=== PATIENT | male | born 1960 ===

== ENCOUNTER 2020-03-06 11:46 | Outpatient (REF) | payer OTHER, SELFPAY ==
[2020-03-06 12:18] LABS: MANUAL DIFF FLAG NO
[2020-03-06 12:22] LABS: Basophils Percent Auto 0.8 % (0-2); Eosinophils Absolute Auto 0.1 X10*3/uL (0.0-0.4); Eosinophils Percent Auto 2.9 % (0-4); Hematocrit 39.6 % (42-52); Hemoglobin 12.6 g/dl (14.0-18.0); Lymphocytes Absolute Auto 1.7 X10*3/uL (1.2-4.9); Lymphocytes Percent Auto 46.1 % (20-40); Mean Corpuscular HGB Conc 31.8 g/dl (31.0-36.0); Mean Corpuscular Hemoglobin 28.8 pg (27.0-33.0); Mean Corpuscular Volume 90.6 fL (80-98); Mean Platelet Volume 9.4 fL (9.4-12.4); Monocytes Absolute Auto 0.4 X10*3/uL (0.1-1.2); Monocytes Percent Auto 10.9 % (2-11); Neutrophils Absolute Auto 1.5 X10*3/uL (2.0-8.3); Neutrophils Percent Auto 39.3 % (45-73); Platelet Count 200 X10*3/uL (160-400); Red Blood Count 4.37 X10*6/uL (4.60-5.80); Red Cell Distribution Width 14.1 % (11.0-16.0); White Blood Count 3.8 X10*3/uL (4.8-10.8)
[2020-03-06 12:57] LABS: Alanine Aminotransferase 30 U/L (0-40); Albumin Level 4.1 g/dL (3.5-5.0); Alkaline Phosphatase 55 U/L (39-117); Anion Gap 12 (12-20); Aspartate Amino Transferase 25 U/L (5-37); Blood Urea Nitrogen 20 mg/dL (9-16); Calcium 9.2 mg/dL (8.4-10.2); Carbon Dioxide 29 mmol/L (22-29); Chloride 104 mmol/L (96-108); Cholesterol 191 mg/dL; Estimated Glomerular Filt Rate > 60; Glucose Fasting 89 mg/dL (60-99); HDL Cholesterol 55 mg/dL; LDL Cholesterol Calculated 125 mg/dl; Potassium 4.2 mmol/l (3.3-5.1); Sodium 141 mmol/L (135-145); Total Protein 6.8 g/dL (6.5-8.0); Triglycerides 55 mg/dL
== END 2020-03-06 11:47 | disposition home or self-care (01) ==
LOC: HO.LAB 11:46
PROVIDERS: PCP Internal Medicine Medical Oncology; Visit Provider Internal Medicine Medical Oncology
DX: E78.2 Mixed hyperlipidemia (principal); I10 Essential (primary) hypertension; E66.3 Overweight
CPT/HCPCS: 36415; 80053; 80061; 85025

== ENCOUNTER 2020-07-05 09:44 | Outpatient (REF) | payer OTHER, SELFPAY ==
[2020-07-05 10:24] LABS: MANUAL DIFF FLAG NO
[2020-07-05 10:29] LABS: Basophils Percent Auto 0.8 % (0-2); Eosinophils Absolute Auto 0.1 X10*3/uL (0.0-0.4); Eosinophils Percent Auto 3.6 % (0-4); Hematocrit 41.3 % (42-52); Hemoglobin 13.3 g/dl (14.0-18.0); Lymphocytes Absolute Auto 1.6 X10*3/uL (1.2-4.9); Mean Corpuscular HGB Conc 32.2 g/dl (31.0-36.0); Mean Corpuscular Hemoglobin 29.1 pg (27.0-33.0); Mean Corpuscular Volume 90.4 fL (80-98); Mean Platelet Volume 9.3 fL (9.4-12.4); Monocytes Absolute Auto 0.4 X10*3/uL (0.1-1.2); Monocytes Percent Auto 9.9 % (2-11); Neutrophils Absolute Auto 1.5 X10*3/uL (2.0-8.3); Neutrophils Percent Auto 40.7 % (45-73); Platelet Count 223 X10*3/uL (160-400); Red Blood Count 4.57 X10*6/uL (4.60-5.80); Red Cell Distribution Width 14.1 % (11.0-16.0); White Blood Count 3.6 X10*3/uL (4.8-10.8)
[2020-07-05 10:58] LABS: Alanine Aminotransferase 29 U/L (0-40); Alkaline Phosphatase 58 U/L (39-117); Anion Gap 9 (12-20); Aspartate Amino Transferase 24 U/L (5-37); Bilirubin Total 1.1 mg/dL (0.0-1.0); Blood Urea Nitrogen 15 mg/dL (9-16); Calcium 9.1 mg/dL (8.4-10.2); Carbon Dioxide 32 mmol/L (22-29); Chloride 102 mmol/L (96-108); Cholesterol 207 mg/dL; Estimated Glomerular Filt Rate > 60; Glucose Fasting 81 mg/dL (60-99); HDL Cholesterol 56 mg/dL; LDL Cholesterol Calculated 142 mg/dl; Potassium 4.9 mmol/L (3.3-5.1); Sodium 138 mmol/L (135-145); Total Protein 6.8 g/dL (6.5-8.0); Triglycerides 49 mg/dL
[2020-07-05 11:16] LABS: Prostate Specific Antigen 0.77 ng/mL (<0.05-4.0)
== END 2020-07-05 09:45 | disposition home or self-care (01) ==
LOC: HO.LAB 09:44
PROVIDERS: PCP Internal Medicine Medical Oncology; Visit Provider Internal Medicine Medical Oncology
DX: I10 Essential (primary) hypertension (principal); E78.2 Mixed hyperlipidemia; Z12.5 Encounter for screening for malignant neoplasm of prostate
CPT/HCPCS: 36415; 80053; 80061; 84153; 85025

== ENCOUNTER 2020-09-09 10:42 | Day surgery (SDC) | payer OTHER, SELFPAY ==
[2020-09-04 14:57] VITALS: BMI 32.6
[2020-09-09 11:01] VITALS: BP 141/83; PULSE 65; RESP 16; TEMP 36.5; O2SAT 98
--- NOTE | 2020-09-09 11:22 | HO.ANESPROP2 ---
HPI - Anesthesia Eval Consult details Narrative: 60 yo male patient here for colonoscopy PMFSH Past Medical History Medical History Elevated cholesterol HTN (hypertension) Family History Family history of problems with anesthesia: No Surgical History Surgical History H/O colonoscopy History of Problems with Anesthesia: No Social History Social History Smoking Status: Never smoker Use of substances other than those prescribed or required for medical reasons: No Advance Directives Information Provided: No Meds Allergies Allergy/AdvReac Type Severity Reaction Status Date / Time Fish Containing Products Allergy Severe ANAPHYLAXIS Verified 09/09/20 10:57 Penicillins [PENICILLINS] Allergy Severe ANAPHYLAXIS Verified 09/09/20 10:57 Active Medications: Current Medications Generic Name Dose Route Start Last Admin Trade Name Freq PRN Reason Stop Dose Admin Lactated Ringer's 1,000 mls @ 100 mls/hr 09/09/20 11:30 Lr IVCONT .Q10H LISSETT Sodium Biphosphate/Sodium Phosphate 133 ml 09/09/20 10:48 Sodium Phosphate,Collier-Dibasic 133 Ml Enema [place] ONCE PRN Poor Colonoscopy Prep Results Home Medications Medication Instructions Recorded Confirmed Last Taken Type hydrochlorothiazide 25 mg PO QAM 09/04/20 09/04/20 Unknown History simvastatin 20 mg PO QPM 09/04/20 09/04/20 Unknown History Exam Exam Date and Time: September 09, 2020 1122 Height,Weight and Vital Signs: Height 5 ft 11 in Weight 106.141 kg Vital Signs Temp Pulse Resp BP Pulse Ox 09/09/20 11:01 97.7 F 65 16 141/83 H 98 Airway Mallampati Class: II TM Dist: >3cm Neck ROM: Full Loose/Missing/Broken Teeth: Yes (Broken top right) Heart: RRR Lungs: CTAB Assessment and Plan Assessment Anesthesia Assessment: Anesthesia Plan Discussed and Chart Reviewed Final Anesthetic Review NPO: Yes ASA Class: II Final Preanesthetic Review: No Changes in Pt Med Stat, Meds/Allgs Chart Reviewed, Consent Obtained/Reviewed and Anes Risks/Benef Reviewed Patient Risk: Low Procedure Risk: Low Assessment/Block/Sedation in SS: Assess/Block/Sedation- Anesthetic Plan Anesthetic Plan: MAC: Disposition: Standard PACU
[2020-09-09] MEDS: Lactated Ringers 1,000 ML 100 ML IVCONT (11:27)
--- NOTE | 2020-09-09 13:18 | PM.OP ---
Brief Operative Note Date of Service: 09/09/20 Pre-op diagnosis: Screening Post-op diagnosis: other (Colon polyp, Diverticulosis) Procedure: Colonoscopy to the cecum and TI with biopsy and removal of polyp Surgeon: Soren Stevens Anesthesia: MAC Estimated blood loss (mL): 3.0 Pathology: other (A. Ascending colon polyp) Condition: stable Disposition: PACU
[2020-09-09 13:19] VITALS: BP 105/62; PULSE 75; RESP 14; TEMP 36.5; O2SAT 98
[2020-09-09 13:34] VITALS: BP 135/81; PULSE 87; RESP 17; TEMP 36.5; O2SAT 99
--- NOTE | 2020-09-09 20:28 | OP_ITS ---
SURGEON: Soren Stevens MD INDICATIONS: The patient presents for evaluation of colorectal cancer screening. Full consent has been obtained from him for this, including risks of bleeding and perforation. PREOPERATIVE DIAGNOSIS: Colorectal cancer screening. POSTOPERATIVE DIAGNOSIS: PROCEDURE PERFORMED: Colonoscopy to cecum and terminal ileum with biopsy and removal of polyp. ESTIMATED BLOOD LOSS: COMPLICATIONS: ANESTHESIA: Monitored anesthesia care. ASSISTANTS: SPECIMENS: POSTOPERATIVE DIAGNOSES: Colorectal cancer screening, small colon polyp, diverticulosis and internal hemorrhoids. DESCRIPTION OF PROCEDURE: The patient was placed in the left lateral decubitus position. The digital rectal exam revealed no abnormalities. The Olympus video pediatric colonoscope was entered into the rectum and advanced to the cecum with the assistance of abdominal wall pressure. Once in the cecum, I did identify normal-appearing cecal pouch with appendiceal orifice and a normal-appearing ileocecal valve. The terminal ileum was cannulated and appeared normal. The scope was withdrawn back in the colon. The entire cecum and ileocecal valve appeared normal. The scope was slowly withdrawn assessing all mucosal surfaces carefully. Preparation was excellent. In the ascending colon, was a flat approximately 4 mm polyp, which was biopsied and completely removed with cold biopsy forceps. I did not visualize any other polyps, colitis, nor angiodysplasia. There was a mild to moderate amount of sigmoid diverticulosis. In the rectum, scope was retroflexed visualizing internal hemorrhoids, but no other pathology. The rectal mucosa appeared normal. The scope was straightened out and withdrawn from the patient. He tolerated the procedure well and was returned to recovery area in stable condition. IMPRESSION: 1. Small colon polyp, status post biopsy and removal. 2. Diverticulosis. 3. Internal hemorrhoids. PLAN: The results of the biopsy will be checked. If this is a tubular adenoma, I would recommend a followup colonoscopy in 5 years. If it is only hyperplastic, I would recommend a followup colonoscopy in 10 years. He will otherwise see me on a p.r.n. basis. MD EILEEN Marquez/TAD / [id number]
== END 2020-09-09 14:29 | disposition home or self-care (01) ==
PROVIDERS: PCP Internal Medicine Medical Oncology; Visit Provider Internal Medicine
PROC: 0DJD8ZZ Inspection of Lower Intestinal Tract, Via Natural or Artificial Opening Endoscopic (ICD-10-PCS; CPT 45378; principal; 2020-09-09 11:50)
DX: Z12.11 Encounter for screening for malignant neoplasm of colon (principal); D12.2 Benign neoplasm of ascending colon; K57.30 Diverticulosis of large intestine without perforation or abscess without bleeding; K64.8 Other hemorrhoids; I10 Essential (primary) hypertension; E78.00 Pure hypercholesterolemia, unspecified; Z88.0 Allergy status to penicillin; Z79.899 Other long term (current) drug therapy
CPT/HCPCS: 45380; 88305

== ENCOUNTER 2020-11-05 08:01 | Outpatient (REF) | payer OTHER, SELFPAY ==
[2020-11-05 08:53] LABS: MANUAL DIFF FLAG NO
[2020-11-05 09:05] LABS: Basophils Percent Auto 0.8 % (0-2); Eosinophils Absolute Auto 0.2 X10*3/uL (0.0-0.4); Eosinophils Percent Auto 4.1 % (0-4); Hematocrit 40.6 % (42-52); Hemoglobin 12.7 g/dl (14.0-18.0); Lymphocytes Absolute Auto 1.8 X10*3/uL (1.2-4.9); Lymphocytes Percent Auto 45.3 % (20-40); Mean Corpuscular HGB Conc 31.3 g/dl (31.0-36.0); Mean Corpuscular Hemoglobin 28.4 pg (27.0-33.0); Mean Corpuscular Volume 90.8 fL (80-98); Mean Platelet Volume 9.6 fL (9.4-12.4); Monocytes Absolute Auto 0.4 X10*3/uL (0.1-1.2); Monocytes Percent Auto 10.2 % (2-11); Neutrophils Absolute Auto 1.6 X10*3/uL (2.0-8.3); Neutrophils Percent Auto 39.6 % (45-73); Platelet Count 214 X10*3/uL (160-400); Red Blood Count 4.47 X10*6/uL (4.60-5.80); Red Cell Distribution Width 14.4 % (11.0-16.0); White Blood Count 3.9 X10*3/uL (4.8-10.8)
[2020-11-05 09:39] LABS: Alanine Aminotransferase 24 U/L (0-40); Albumin Level 4.1 g/dL (3.5-5.0); Alkaline Phosphatase 51 U/L (39-117); Anion Gap 11 (12-20); Aspartate Amino Transferase 25 U/L (5-37); Blood Urea Nitrogen 15 mg/dL (9-16); Calcium 9.1 mg/dL (8.4-10.2); Carbon Dioxide 30 mmol/L (22-29); Chloride 106 mmol/L (96-108); Cholesterol 188 mg/dL; Estimated Glomerular Filt Rate > 60; Glucose Fasting 95 mg/dL (60-99); HDL Cholesterol 59 mg/dL; LDL Cholesterol Calculated 118 mg/dl; Sodium 143 mmol/L (135-145); Total Protein 6.6 g/dL (6.5-8.0); Triglycerides 58 mg/dL
== END 2020-11-05 08:02 | disposition home or self-care (01) ==
LOC: HO.LAB 08:01
PROVIDERS: PCP Internal Medicine Medical Oncology; Visit Provider Internal Medicine Medical Oncology
DX: E78.2 Mixed hyperlipidemia (principal); E66.9 Obesity, unspecified; I10 Essential (primary) hypertension
CPT/HCPCS: 36415; 80053; 80061; 85025

== ENCOUNTER 2021-11-21 13:29 | Outpatient (REF) | payer OTHER, SELFPAY ==
[2021-11-21 13:50] LABS: MANUAL DIFF FLAG NO
[2021-11-21 14:11] LABS: Basophils Percent Auto 0.8 % (0-2); Eosinophils Absolute Auto 0.1 X10*3/uL (0.0-0.4); Hematocrit 40.5 % (42.0-52.0); Hemoglobin 13.2 g/dl (14.0-18.0); Imm Gran Abs Auto 0.01 X10*3/uL (0.00-0.03); Imm Gran Pct Auto 0.3 % (0.0-0.4); Lymphocytes Absolute Auto 1.5 X10*3/uL (1.2-4.9); Lymphocytes Percent Auto 40.5 % (20-40); Mean Corpuscular HGB Conc 32.6 g/dl (31.0-36.0); Mean Corpuscular Hemoglobin 28.9 pg (27.0-33.0); Mean Corpuscular Volume 88.8 fL (80.0-98.0); Mean Platelet Volume 9.3 fL (9.4-12.4); Monocytes Absolute Auto 0.3 X10*3/uL (0.1-1.2); Monocytes Percent Auto 9.3 % (2-11); Neutrophils Absolute Auto 1.7 x10*3/uL (2.0-8.3); Neutrophils Percent Auto 46.1 % (45-73); Platelet Count 222 X10*3/uL (160-400); Red Blood Count 4.56 X10*6/uL (4.60-5.80); Red Cell Distribution Width 14.8 % (11.0-16.0); White Blood Count 3.7 X10*3/uL (4.8-10.8)
[2021-11-21 14:32] LABS: Alanine Aminotransferase 23 U/L (0-40); Albumin Level 4.2 g/dL (3.5-5.0); Alkaline Phosphatase 69 U/L (39-117); Anion Gap 13 (12-20); Aspartate Amino Transferase 24 U/L (5-37); Bilirubin Total 1.4 mg/dL (0.0-1.0); Blood Urea Nitrogen 19 mg/dL (9-16); Calcium 9.3 mg/dL (8.4-10.2); Carbon Dioxide 27 mmol/L (22-29); Chloride 105 mmol/L (96-108); Cholesterol 210 mg/dL; Estimated Glomerular Filt Rate > 60; Glucose Fasting 82 mg/dL (60-99); HDL Cholesterol 62 mg/dL; LDL Cholesterol Calculated 140 mg/dl; Potassium 4.1 mmol/L (3.3-5.1); Sodium 141 mmol/L (135-145); Total Protein 7.2 g/dL (6.5-8.0); Triglycerides 44 mg/dL
[2021-11-21 14:48] LABS: Prostate Specific Antigen 1.26 ng/mL (<0.05-4.0)
== END 2021-11-21 13:30 | disposition home or self-care (01) ==
LOC: HO.LAB 13:29
PROVIDERS: PCP Internal Medicine Medical Oncology; Visit Provider Internal Medicine Medical Oncology
DX: Z12.5 Encounter for screening for malignant neoplasm of prostate (principal); I10 Essential (primary) hypertension; E78.2 Mixed hyperlipidemia; E66.9 Obesity, unspecified
CPT/HCPCS: 36415; 80053; 80061; 84153; 85025

== ENCOUNTER 2022-07-29 10:17 | Outpatient (REF) | payer OTHER, SELFPAY ==
[2022-07-29 10:27] LABS: MANUAL DIFF FLAG NO
[2022-07-29 11:53] LABS: Eosinophils Absolute Auto 0.1 X10*3/uL (0.0-0.4); Eosinophils Percent Auto 3.1 % (0-4); Hematocrit 43.2 % (42.0-52.0); Hemoglobin 13.7 g/dl (14.0-18.0); Imm Gran Abs Auto 0.01 X10*3/uL (0.00-0.03); Imm Gran Pct Auto 0.2 % (0.0-0.4); Lymphocytes Absolute Auto 1.9 X10*3/uL (1.2-4.9); Lymphocytes Percent Auto 45.9 % (20-40); Mean Corpuscular HGB Conc 31.7 g/dl (31.0-36.0); Mean Corpuscular Hemoglobin 28.5 pg (27.0-33.0); Mean Corpuscular Volume 89.8 fL (80.0-98.0); Mean Platelet Volume 9.4 fL (9.4-12.4); Monocytes Absolute Auto 0.4 X10*3/uL (0.1-1.2); Monocytes Percent Auto 9.1 % (2-11); Neutrophils Absolute Auto 1.7 x10*3/uL (2.0-8.3); Neutrophils Percent Auto 40.7 % (45-73); Platelet Count 257 X10*3/uL (160-400); Red Blood Count 4.81 X10*6/uL (4.60-5.80); Red Cell Distribution Width 14.6 % (11.0-16.0); White Blood Count 4.2 X10*3/uL (4.8-10.8)
[2022-07-29 12:09] LABS: Alanine Aminotransferase 20 U/L (0-40); Albumin Level 4.1 g/dL (3.5-5.0); Alkaline Phosphatase 64 U/L (39-117); Anion Gap 12 (12-20); Aspartate Amino Transferase 23 U/L (5-37); Bilirubin Total 1.7 mg/dL (0.0-1.0); Blood Urea Nitrogen 12 mg/dL (9-16); Carbon Dioxide 30 mmol/L (22-29); Chloride 104 mmol/L (96-108); Cholesterol 221 mg/dL; Estimated Glomerular Filt Rate > 60; Glucose Fasting 81 mg/dL (60-99); HDL Cholesterol 54 mg/dL; LDL Cholesterol Calculated 155 mg/dl; Potassium 3.7 mmol/L (3.3-5.1); Sodium 142 mmol/L (135-145); Total Protein 6.9 g/dL (6.5-8.0); Triglycerides 61 mg/dL
[2022-07-29 12:17] LABS: Prostate Specific Antigen 1.41 ng/mL (<0.05-4.0)
== END 2022-07-29 10:18 | disposition home or self-care (01) ==
LOC: HO.LAB 10:17
PROVIDERS: PCP Internal Medicine Medical Oncology; Visit Provider Internal Medicine Medical Oncology
DX: Z00.00 Encounter for general adult medical examination without abnormal findings (principal); Z12.5 Encounter for screening for malignant neoplasm of prostate; E78.2 Mixed hyperlipidemia; E66.9 Obesity, unspecified; N40.0 Benign prostatic hyperplasia without lower urinary tract symptoms
CPT/HCPCS: 36415; 80053; 80061; 84153; 85025

== ENCOUNTER 2022-09-26 17:33 | Emergency (ER) | payer OTHER, SELFPAY ==
--- NOTE | ~2022-09-26 | XR_ITS ---
EXAMINATION: XR knee RT 2V XR tibia fibula RT 2V CLINICAL INFORMATION: Reason for Exam ?fx COMPARISON: None. TECHNIQUE: 2 views of the right knee 2 views of the right FINDINGS: Comminuted tibial plateau fracture dominant component reaching the lateral tibial articular surface with inferior displacement of the medial tibial articular surface and intercondylar notch and posterior displacement approximately 1 cm. Fibula and femur are intact. Large lipohemarthrosis. XR/XR tibia fibula RT 2V IMPRESSION: * Comminuted tibial plateau fracture as described. * Large lipohemarthrosis.
--- NOTE | ~2022-09-26 | XR_ITS ---
EXAMINATION: XR knee RT 2V XR tibia fibula RT 2V CLINICAL INFORMATION: Reason for Exam ?fx COMPARISON: None. TECHNIQUE: 2 views of the right knee 2 views of the right FINDINGS: Comminuted tibial plateau fracture dominant component reaching the lateral tibial articular surface with inferior displacement of the medial tibial articular surface and intercondylar notch and posterior displacement approximately 1 cm. Fibula and femur are intact. Large lipohemarthrosis. XR/XR knee RT 2V IMPRESSION: * Comminuted tibial plateau fracture as described. * Large lipohemarthrosis.
[2022-09-26 17:43] VITALS: BP 167/98; PULSE 73; RESP 16; TEMP 36.4; O2SAT 98; BMI 32.0
--- NOTE | 2022-09-26 17:56 | PC.NURSE ---
Alert and oriented, resp even and unlabored. Pt able to move/feel toes of affected extremity. Denies any neck/head pain at this time. Urinal in place for patient's comfort. Call simpson in place
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
[2022-09-26 18:51] VITALS: BP 161/100; PULSE 75; RESP 18; O2SAT 98
[2022-09-26 19:37] VITALS: BP 150/86; PULSE 62; RESP 16; TEMP 36.7; O2SAT 97
[2022-09-26 21:36] VITALS: BP 135/85; PULSE 75; RESP 16; TEMP 36.6; O2SAT 98
--- NOTE | 2022-09-26 21:36 | PC.NURSE ---
Crutch education provided. Pt demonstrated proper use of crutches.
--- NOTE | 2022-09-26 21:38 | MHC.EDTECH ---
PATIENT WAS GIVEN CRUTCHES AND KNEE IMMOBILIZER APPLY TO RIGHT KNEE .
[2022-09-26] MEDS: oxyCODONE HCl Immed Release 5 MG TABLET 10 MG PO (21:42)
== END 2022-09-26 22:41 | disposition home or self-care (01) ==
PROVIDERS: Emergency Provider Internal Medicine; PCP Internal Medicine Medical Oncology
DX: S82.142A Displaced bicondylar fracture of left tibia, initial encounter for closed fracture (principal); S80.212A Abrasion, left knee, initial encounter; S50.312A Abrasion of left elbow, initial encounter; S80.211A Abrasion, right knee, initial encounter; V28.09XA Other motorcycle driver injured in noncollision transport accident in nontraffic accident, initial encounter; Y93.89 Activity, other specified; Y92.414 Local residential or business street as the place of occurrence of the external cause; Y99.9 Unspecified external cause status
CPT/HCPCS: 73560; 73590; 99283; 99284

== ENCOUNTER → 2022-09-28 13:37 | Outpatient (BNVA) | payer OTHER, SELFPAY | PROVIDERS: PCP Internal Medicine Medical Oncology; Visit Provider Physician Assistant | DX: S82.141A Displaced bicondylar fracture of right tibia, initial encounter for closed fracture (principal) | CPT/HCPCS: 99202 ==

== ENCOUNTER → 2022-10-02 15:25 | Outpatient (REF) | payer OTHER, SELFPAY ==
--- NOTE | 2022-10-02 15:29 | ECG_ITS ---
Test Reason : preproc exam Blood Pressure : / mmHG Vent. Rate : 094 BPM Atrial Rate : 094 BPM P-R Int : 148 ms QRS Dur : 082 ms QT Int : 350 ms P-R-T Axes : 057 006 023 degrees QTc Int : 437 ms Normal sinus rhythm Moderate voltage criteria for LVH, may be normal variant ( R in aVL , Sokolow-Salmeron ) Borderline ECG No previous ECGs available Referred By: Domenico Landeros Electronically Signed By:Jay Layne
[2022-10-02 15:42] LABS: MANUAL DIFF FLAG NO
[2022-10-02 16:04] LABS: Basophils Absolute Auto 0.1 X10*3/uL (0.0-0.2); Basophils Percent Auto 0.6 % (0-2); Eosinophils Absolute Auto 0.1 X10*3/uL (0.0-0.4); Eosinophils Percent Auto 1.2 % (0-4); Hematocrit 37.1 % (42.0-52.0); Hemoglobin 11.9 g/dl (14.0-18.0); Imm Gran Abs Auto 0.03 X10*3/uL (0.00-0.03); Imm Gran Pct Auto 0.4 % (0.0-0.4); Lymphocytes Absolute Auto 1.7 X10*3/uL (1.2-4.9); Lymphocytes Percent Auto 20.9 % (20-40); Mean Corpuscular HGB Conc 32.1 g/dl (31.0-36.0); Mean Corpuscular Hemoglobin 28.5 pg (27.0-33.0); Mean Corpuscular Volume 88.8 fL (80.0-98.0); Mean Platelet Volume 9.2 fL (9.4-12.4); Monocytes Absolute Auto 0.8 X10*3/uL (0.1-1.2); Monocytes Percent Auto 9.4 % (2-11); Neutrophils Absolute Auto 5.6 x10*3/uL (2.0-8.3); Neutrophils Percent Auto 67.5 % (45-73); Platelet Count 245 X10*3/uL (160-400); Red Blood Count 4.18 X10*6/uL (4.60-5.80); White Blood Count 8.3 X10*3/uL (4.8-10.8)
[2022-10-02 16:24] LABS: Anion Gap 12 (12-20); Blood Urea Nitrogen 18 mg/dL (9-16); Calcium 9.2 mg/dL (8.4-10.2); Carbon Dioxide 30 mmol/L (22-29); Chloride 102 mmol/L (96-108); Estimated Glomerular Filt Rate > 60; Glucose Random 108 mg/dL (60-115); Potassium 3.9 mmol/L (3.3-5.1); Sodium 140 mmol/L (135-145)
== END ==
LOC: HO.CARD 15:25
PROVIDERS: Orthopaedic Surgery; PCP Internal Medicine Medical Oncology; Visit Provider Internal Medicine Medical Oncology
DX: Z01.818 Encounter for other preprocedural examination (principal); I10 Essential (primary) hypertension; D72.819 Decreased white blood cell count, unspecified
CPT/HCPCS: 36415; 80048; 85025; 93005

== ENCOUNTER 2022-10-05 14:51 | Outpatient (REF) | payer OTHER, SELFPAY ==
--- NOTE | ~2022-10-05 | CT_ITS ---
EXAMINATION: CT KNEE WITHOUT CONTRAST, RIGHT CLINICAL INFORMATION: Displaced bicondylar fracture COMPARISON: Radiographs 09/26/2012 TECHNIQUE: A noncontrast CT of the right knee is performed with sagittal and coronal reformats This CT examination was performed using dose optimization techniques as appropriate, variously including the following: *Automated exposure control *Adjustment of mA and/or kV according to patient size (this includes techniques or standardized protocols for targeted exams where dose is matched to indication/reason for exam; i.e. extremities or head) *Use of iterative reconstruction technique DLP: 157 mGy-cm FINDINGS: Extensively comminuted fracture of the proximal tibia. There is a dominant sagittal oblique fracture line extending from the lateral tibial plateau posteriorly, crossing midline through the tibial spines and extending through the medial tibial metaphysis. There is up to 1.6 cm of lateral displacement along this dominant fracture. The lateral femoral condyle is impacted into this fracture, with approximately 6 mm of overriding. There is a small impaction fracture at the peripheral aspect of the weightbearing lateral femoral condyle laterally, perched upon a ridge of the tibial fracture. A nondisplaced fracture extends into the tibiofibular joint. There is a large lipohemarthrosis. CT/CT knee RT wo IV con IMPRESSION: Extensively comminuted fracture of the proximal tibia with displacement, femoral impaction, and large lipohemarthrosis as detailed in the comments.
== END 2022-10-05 14:52 | disposition home or self-care (01) ==
LOC: HO.CT 14:51
PROVIDERS: PCP Internal Medicine Medical Oncology; Visit Provider Physician Assistant
DX: S82.141A Displaced bicondylar fracture of right tibia, initial encounter for closed fracture (principal)
CPT/HCPCS: 73700

== ENCOUNTER 2022-10-07 07:34 | Day surgery (SDC) | payer OTHER, SELFPAY ==
[2022-10-05 09:18] VITALS: BMI 31.9
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
[2022-10-07] VITALS (9 sets, daily range): BP systolic 127–158; BP diastolic 85–93; PULSE 70–93; RESP 12–18; TEMP 36–36.6; O2SAT 96–100
--- NOTE | ~2022-10-07 | US_ITS ---
EXAMINATION: US VENOUS ULTRASOUND WITH DOPPLER LOWER EXTREMITY, RIGHT CLINICAL INFORMATION: Right lower extremity swelling/presurgical. COMPARISON: None available. TECHNIQUE: Ultrasound of the deep veins is performed from the hip to the calf with compression sonography and color and pulse Doppler assessment. Spectral analysis with color-flow imaging is performed. FINDINGS: There is normal venous compression and respiratory variation and augmented flow. The visualized common femoral vein, superficial femoral vein, profunda femoral vein, popliteal vein, and the trifurcation region shows no evidence of deep venous thrombosis. There is no significant popliteal fossa cyst.. If the patient's symptoms persist, followup ultrasound in 5 days 7 days might be of value to exclude proximal propagation from a non-visualized calf vein. US/US venous duplex LE RT IMPRESSION: No DVT demonstrated in the right lower extremity.
--- NOTE | ~2022-10-07 | FL_ITS ---
EXAMINATION: XR FLUOROSCOPY WITH IMAGES CLINICAL INFORMATION: Right tibial plateau fracture COMPARISON: Previous x-ray and CT September 2022 TECHNIQUE: Fluoroscopy Supervised By: Dr. Domenico Landeros. Fluoroscopy Time: 1.4 minutes. Cumulative Dose: 12.5 mGy. DAP: 0.22 Gycm2. Images: 5. FINDINGS: Images demonstrate medial and lateral plates transfixing the comminuted tibial plateau and proximal shaft fracture with improved alignment. FL/FL guidance in OR IMPRESSION: Fluoroscopy guidance for ORIF of tibial fracture
--- NOTE | 2022-10-07 11:35 | MHC.SHP ---
Pre-Procedural Eval Section A Date of Service: 10/07/22 The patient is an INPATIENT: No Changes since office visit: Yes Cold of Flu in the past 2 weeks, Yes New Medical Problems, Yes Changes in Medication and Yes Patient answered all questions The History & Physical has been completed within 30 days and I have reviewed it.: Yes Section B Chief Complaint: Displaced bicondylar fracture of right tibia, Allergies: Allergies Allergy/AdvReac Type Severity Reaction Status Date / Time Fish Containing Products Allergy Severe ANAPHYLAXIS Verified 09/28/22 14:07 Penicillins [PENICILLINS] Allergy Severe ANAPHYLAXIS Verified 09/28/22 14:07 Plan I have reviewed the history and physical and performed a pertinent physical examination on my patient. No changes have occurred unless specified. Time Spent With Patient Time: Total time managing care of this patient today ____ minutes.
--- NOTE | 2022-10-07 17:17 | P.BOP_ITS ---
Brief Operative Note Date of Service: 10/07/22 Pre-op diagnosis: Right tibial plateau fracture Post-op diagnosis: same Procedure: ORIF right tibial plateau Implants: Styrker medial and lateral plates Surgeon: Domenico Landeros MD Anesthesia: GETA and local Was an Highway Maintainer used for this Procedure?: Yes Highway Maintainer: Lily Hernandez Estimated blood loss (mL): 350 IV fluids (mL): 1,500 Pathology: none sent Condition: stable Disposition: PACU
[2022-10-07 18:15] LABS: Basophils Percent Auto 0.2 % (0-2); Eosinophils Percent Auto 0.1 % (0-4); Hemoglobin 10.5 g/dl (14.0-18.0); Lymphocytes Percent Auto 7.5 % (20-40); Mean Corpuscular Volume 89.6 fL (80.0-98.0); PLT CLUMP 1; SCAN SMEAR FLAG 1
[2022-10-07 18:17] LABS: Hematocrit 32.7 % (42.0-52.0); Imm Gran Abs Auto 0.04 X10*3/uL (0.00-0.03); Imm Gran Pct Auto 0.3 % (0.0-0.4); Lymphocytes Absolute Auto 0.9 X10*3/uL (1.2-4.9); MANUAL DIFF FLAG SCAN; Mean Corpuscular HGB Conc 32.1 g/dl (31.0-36.0); Mean Corpuscular Hemoglobin 28.8 pg (27.0-33.0); Mean Platelet Volume 8.9 fL (9.4-12.4); Monocytes Absolute Auto 0.3 X10*3/uL (0.1-1.2); Monocytes Percent Auto 2.1 % (2-11); Neutrophils Percent Auto 89.8 % (45-73); Red Blood Count 3.65 X10*6/uL (4.60-5.80); Red Cell Distribution Width 13.6 % (11.0-16.0)
[2022-10-07] MEDS: Acetaminophen 1,000 MG/100 ML PIGGYBACK 400 MG IV (18:17)
[2022-10-07 19:09] LABS: Platelet Count 424 X10*3/uL (160-400); White Blood Count 12.3 X10*3/uL (4.8-10.8)
[2022-10-07 19:10] LABS: SLIDE REVIEW VERIFIED
[2022-10-07] MEDS: Lactated Ringers 1,000 ML 100 ML IVCONT (19:16)
[2022-10-07] MEDS: Docusate Sodium 100 MG CAPSULE PO (20:16)
[2022-10-07] MEDS: oxyCODONE HCl ER 10 MG TAB.ER.12H PO (20:16)
[2022-10-07] MEDS: Atorvastatin Calcium 10 MG TABLET PO (20:16)
[2022-10-07] MEDS: Celecoxib 200 MG CAPSULE PO (20:16)
[2022-10-08] MEDS: Clindamycin Phosphate/D5W 900 MG/50 ML PIGGYBACK 50 MG IV (00:21)
[2022-10-08 04:00] VITALS: BP 153/77; PULSE 88; RESP 18; TEMP 37; O2SAT 96
[2022-10-08] MEDS: oxyCODONE HCl Immed Release 5 MG TABLET PO ×2 (05:56→16:00)
[2022-10-08] MEDS: Lactated Ringers 1,000 ML 100 ML IVCONT ×2 (05:57→15:54)
[2022-10-08 07:03] LABS: MANUAL DIFF FLAG NO
[2022-10-08 07:10] LABS: Basophils Percent Auto 0.4 % (0-2); Eosinophils Absolute Auto 0.1 X10*3/uL (0.0-0.4); Hematocrit 24.6 % (42.0-52.0); Hemoglobin 7.9 g/dl (14.0-18.0); Imm Gran Abs Auto 0.04 X10*3/uL (0.00-0.03); Imm Gran Pct Auto 0.5 % (0.0-0.4); Lymphocytes Absolute Auto 1.5 X10*3/uL (1.2-4.9); Lymphocytes Percent Auto 18.9 % (20-40); Mean Corpuscular HGB Conc 32.1 g/dl (31.0-36.0); Mean Corpuscular Hemoglobin 28.9 pg (27.0-33.0); Mean Corpuscular Volume 90.1 fL (80.0-98.0); Mean Platelet Volume 9.2 fL (9.4-12.4); Monocytes Absolute Auto 0.8 X10*3/uL (0.1-1.2); Monocytes Percent Auto 9.8 % (2-11); Neutrophils Absolute Auto 5.5 x10*3/uL (2.0-8.3); Neutrophils Percent Auto 69.4 % (45-73); Platelet Count 308 X10*3/uL (160-400); Red Blood Count 2.73 X10*6/uL (4.60-5.80); Red Cell Distribution Width 13.9 % (11.0-16.0); White Blood Count 7.9 X10*3/uL (4.8-10.8)
[2022-10-08 07:23] VITALS: BP 132/70; PULSE 103; RESP 18; TEMP 36.8; O2SAT 99
[2022-10-08 07:28] LABS: Anion Gap 13 (12-20); Blood Urea Nitrogen 16 mg/dL (9-16); Calcium 7.6 mg/dL (8.4-10.2); Carbon Dioxide 22 mmol/L (22-29); Chloride 107 mmol/L (96-108); Creatinine Clr Calc Pharmacy 129.2; Estimated Glomerular Filt Rate > 60; Glucose Fasting 85 mg/dL (60-99); Potassium 4.3 mmol/L (3.3-5.1); Sodium 138 mmol/L (135-145)
[2022-10-08] MEDS: oxyCODONE HCl ER 10 MG TAB.ER.12H PO ×2 (07:40→20:11)
[2022-10-08] MEDS: Celecoxib 200 MG CAPSULE PO ×2 (07:40→20:11)
[2022-10-08] MEDS: hydroCHLOROthiazide 25 MG TABLET PO (07:40)
[2022-10-08] MEDS: 0.9 % Sodium Chloride Flush 3 ML SYRINGE IVFLUSH (07:40)
[2022-10-08] MEDS: Docusate Sodium 100 MG CAPSULE PO ×2 (07:41→20:11)
--- NOTE | 2022-10-08 08:58 | P.PNOP_ITS ---
Subjective Subjective Date of Service: 10/08/22 Principal diagnosis: rigfht tibial plateau fracture Interval history: No overnight events [place] this am with hct 24.5 Physical Exam Vital Signs: Vital Signs: Last Vital Signs Temp 98.3 F 10/08/22 07:23 Pulse 103 H 10/08/22 07:23 Resp 18 10/08/22 07:23 BP 132/70 10/08/22 07:23 Pulse Ox 99 10/08/22 07:23 O2 Del Method Nasal Cannula 10/08/22 07:23 O2 Flow Rate 2 10/08/22 07:23 BMI result Body Mass Index 31.9 Extrem: Other: dressing c/d/i moving toes and brisk cap refill compartments soft Procedures Date of Service Date of Service: 10/08/22 Progress Note: A&P Assessment and plan (1) Tibial plateau fracture, right: Status: Acute Plan POD#1 s/p right tibial plateau Fluid bolus and Iron-Yazdanism NWB RLE PT Dispo planning lovenox fro dvt prophylaxis Time Spent With Patient Time: Total time managing care of this patient today _10__ minutes. Quality Stroke Does the patient have a stroke diagnosis?: No VTE Prior VTE?: No VTE Risk Level:: Surgical - high VTE Device Contraindication: N/A - Device Ordered VTE Drug Contraindication: N/A - Med Ordered
--- NOTE | 2022-10-08 10:33 | MHC.CM.PN ---
PATIENT LIVES WITH . HE REPORTS BEING INDEPENDENT PRIOR TO HIS STAY. REFERRAL TO [facility] FOR HOME P.T. AND O.T. PER CONVERSATION. NO HCP ON FILE AND PATIENT IS AWARE THAT HE CAN COMPLETE ONE HERE IF HE DECIDES TO DO SO. PCP VERIFIED. CASE MANAGEMENT FOLLOWING
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
[2022-10-08] MEDS: Ferrous Sulfate 324 MG TABLET.DR 325 MG PO (11:38)
[2022-10-08] MEDS: 0.9 % Sodium Chloride 1,000 ML 999 ML IV (11:39)
[2022-10-08 15:40] VITALS: BP 132/63; PULSE 102; RESP 18; TEMP 36.4; O2SAT 96
[2022-10-08] MEDS: Enoxaparin Sodium 40 MG/0.4 ML SYRINGE SUBCUT (16:00)
[2022-10-08 17:36] VITALS: O2SAT 94
--- NOTE | 2022-10-08 18:08 | HO.POSTANES ---
Post Anesthesia Evaluation Post Anesthesia Evaluation Date of Service: 10/08/22 Vital Signs: Vital Signs Temp Pulse Resp BP Pulse Ox O2 Del Method O2 Flow Rate 10/08/22 17:36 94 Room Air 10/08/22 15:40 97.6 F 102 H 18 132/63 96 Room Air 10/08/22 07:23 98.3 F 103 H 18 132/70 99 Nasal Cannula 2 Anesthesia: General LMA Mental Status: Awake Pain Control: Satisfactory Nausea/Vomiting: None Hydration: Adequate Anesthesia-Related Issues: No Anes. Related Issues Comments: Patient is POD 1 , Hgb dropped down to 7.9 this AM from post-op Hgb of 10.5 . Being monitored by the hospitalist team and the orthopedics team . Started on iron therapy by the primary team .
[2022-10-08 19:29] VITALS: BP 134/63; PULSE 108; RESP 18; TEMP 36.4; O2SAT 97
[2022-10-08] MEDS: Atorvastatin Calcium 10 MG TABLET PO (20:11)
[2022-10-09 03:53] VITALS: BP 144/75; PULSE 101; RESP 16; TEMP 36.6; O2SAT 96
[2022-10-09 06:40] LABS: MANUAL DIFF FLAG NO
[2022-10-09 06:44] LABS: Basophils Percent Auto 0.4 % (0-2); Eosinophils Absolute Auto 0.2 X10*3/uL (0.0-0.4); Eosinophils Percent Auto 1.9 % (0-4); Hematocrit 24.1 % (42.0-52.0); Hemoglobin 7.9 g/dl (14.0-18.0); Imm Gran Abs Auto 0.04 X10*3/uL (0.00-0.03); Imm Gran Pct Auto 0.5 % (0.0-0.4); Lymphocytes Absolute Auto 1.5 X10*3/uL (1.2-4.9); Lymphocytes Percent Auto 17.4 % (20-40); Mean Corpuscular HGB Conc 32.8 g/dl (31.0-36.0); Mean Corpuscular Hemoglobin 28.9 pg (27.0-33.0); Mean Corpuscular Volume 88.3 fL (80.0-98.0); Mean Platelet Volume 9.1 fL (9.4-12.4); Monocytes Absolute Auto 0.8 X10*3/uL (0.1-1.2); Monocytes Percent Auto 9.6 % (2-11); Neutrophils Percent Auto 70.2 % (45-73); Platelet Count 346 X10*3/uL (160-400); Red Blood Count 2.73 X10*6/uL (4.60-5.80); Red Cell Distribution Width 13.8 % (11.0-16.0); White Blood Count 8.5 X10*3/uL (4.8-10.8)
[2022-10-09 07:19] LABS: Anion Gap 12 (12-20); Blood Urea Nitrogen 15 mg/dL (9-16); Carbon Dioxide 25 mmol/L (22-29); Chloride 105 mmol/L (96-108); Creatinine Clr Calc Pharmacy 101.2; Estimated Glomerular Filt Rate > 60; Glucose Fasting 108 mg/dL (60-99); Sodium 138 mmol/L (135-145)
[2022-10-09 07:29] VITALS: BP 138/86; PULSE 100; RESP 18; TEMP 37.1; O2SAT 98
[2022-10-09] MEDS: Ferrous Sulfate 324 MG TABLET.DR 325 MG PO (07:34)
[2022-10-09] MEDS: Celecoxib 200 MG CAPSULE PO (07:34)
[2022-10-09] MEDS: Docusate Sodium 100 MG CAPSULE PO (07:34)
[2022-10-09] MEDS: oxyCODONE HCl ER 10 MG TAB.ER.12H PO (07:34)
[2022-10-09] MEDS: hydroCHLOROthiazide 25 MG TABLET PO (07:34)
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
--- NOTE | 2022-10-09 08:00 | P.PNOP_ITS ---
Subjective Subjective Date of Service: 10/09/22 Principal diagnosis: right tibial plateau fracture Interval history: POD#2 with no o/n events AFVSS ~ taccy at 100 with stable hct at 254. Restoration Physical Exam Vital Signs: Vital Signs: Last Vital Signs Temp 98.8 F 10/09/22 07:29 Pulse 100 10/09/22 07:29 Resp 18 10/09/22 07:29 BP 138/86 10/09/22 07:29 Pulse Ox 98 10/09/22 07:29 O2 Del Method Room Air 10/09/22 07:29 O2 Flow Rate 2 10/08/22 07:23 BMI result Body Mass Index 31.9 Extrem: Other: inc c/d/i compartments soft FIring ehl/ta/gc SILT Procedures Date of Service Date of Service: 10/09/22 Progress Note: A&P Assessment and plan (1) Tibial plateau fracture, right: Status: Acute Assessment and Plan: Doing well NWB Dispo home today PO pain control Chemoprophylaxis f/u next week Time Spent With Patient Time: Total time managing care of this patient today ____ minutes. Quality Stroke Does the patient have a stroke diagnosis?: No VTE Prior VTE?: No VTE Risk Level:: Surgical - high VTE Device Contraindication: N/A - Device Ordered VTE Drug Contraindication: N/A - Med Ordered
[2022-10-09 09:45] VITALS: BP 138/86; PULSE 100; O2SAT 98
--- NOTE | 2022-10-09 10:04 | P.F2F_ITS ---
Service Date Service Date: 10/09/22 Encounter Date of encounter: 10/09/22 Reasons for Services Signs and symptoms assessed: Pt. is considered homebound due to recent surgery. Unable to drive, poor balance, poor gait mechanics. s/p right tibial plateau ORIF. Okay to begin 10/14/22 Reason for physical therapy: home safety and mobility, therapeutic exercises, restore joint function, gait/transfer training, assess need for DME and ADL training Reason for occupational therapy: home safety and mobility, therapeutic exercises, restore joint function, gait/transfer training, assess need for DME and ADL training Homebound: Leaving the home is medically contraindicated at this time without the asist of a device and/or another person due th the listed conditions above and below. Reason homebound: unsteady gait / fall risk, leg weakness, pain with ambulation, pain with transfers, poor balance / fall risk and unable to drive Homebound supporting statement: Pt. is considered homebound due to recent surgery. Unable to drive, poor balance, poor gait mechanics. Certification: Based on the above findings, I certify that this patient is confined to the home and needs intermittent detention care, physical therapy and/or speech therapy, or continues to need occupational therapy. The patient is under my care, and I have initiated the establishment of the plan of care. The patient will be followed by a physician who will periodically review the plan of care. Time Spent With Patient Time: Total time managing care of this patient today ____ minutes.
--- NOTE | 2022-10-09 10:05 | PM.DS ---
DS: Providers Provider Date of Service: 10/09/22 Primary care physician: Soren Winn MD Consults: 10/07/22 18:56 Consult to Hospitalist Routine Comment: Consulting Provider: Hospitalist Reason For Exam: routine medical management DS: Diagnosis Discharge Diagnosis (1) HTN (hypertension): Status: Acute DS: Summary Hospital Course Hospital Course: The patient underwent a successful right tibial plateau ORIF, they were transferred to PACU and then to the floor to recover. During their stay, their vitals were stable, afebrile at 98.8. Labs were unremarkable, H/H 7.9/24.1, denies blood products. D/C'ed with Iron. POD 1 they were started on Lovenox for DVT ppx, they also received Physical Therapy services twice a day. Prior to discharge, their dressing was changed, incision clean dry and intact, new Aquacel dressing applied and the plan was to be discharged home with VNA services. Time Spent with Patient Time attestation: Total time managing care of this patient today ____ minutes. Discharge coordination time: Less than 30 minutes Quality: Safe Use of Opioids Does Pt have an Active Cancer Diagnosis on the Problem List?: No Quality: Stroke Does the patient have a stroke diagnosis?: No Physical Exam Vital Signs: Vital Signs: Last Vital Signs Temp 98.8 F 10/09/22 07:29 Pulse 100 10/09/22 09:45 Resp 18 10/09/22 07:29 BP 138/86 10/09/22 09:45 Pulse Ox 98 10/09/22 09:45 O2 Del Method Room Air 10/09/22 07:29 O2 Flow Rate 2 10/08/22 07:23 BMI result Body Mass Index 31.9 Extrem: Other: inc c/d/i compartments soft FIring ehl/ta/gc SILT DS: Data Data Completed and Pending Labs on day of discharge: Laboratory Results - last 24 hr 10/09/22 10/09/22 05:26 05:26 WBC 8.5 RBC 2.73 L Hgb 7.9 L Hct 24.1 L MCV 88.3 MCH 28.9 MCHC 32.8 RDW 13.8 Plt Count 346 MPV 9.1 L Immature Gran % (Auto) 0.5 H Neut % (Auto) 70.2 Lymph % (Auto) 17.4 L [place] % (Auto) 9.6 Eos % (Auto) 1.9 Baso % (Auto) 0.4 Lymph # (Auto) 1.5 [place] # (Auto) 0.8 Eos # (Auto) 0.2 Baso # (Auto) 0.0 Abs Immat Gran (auto) 0.04 H Absolute Neuts (auto) 6.0 Absolute Nucleated RBC 0.000 Nucleated RBC % (auto) 0.0 Sodium 138 Potassium 4.0 Chloride 105 Carbon Dioxide 25 Anion Gap 12 BUN 15 Creatinine 0.97 Estim Creat Clear Calc 101.2 Estimated GFR > 60 Fasting Glucose 108 H Calcium 8.0 L Discharge Plan Discharge Patient Disposition: Home Health Service Referrals: Earlene Lynne PA-C [Physician Chief Commercial Officer] - 1 Week Discharge Medications: New enoxaparin 40 mg/0.4 mL Syringe 40 mg subcut Q24H 42 Days Qty: 16.8 0RF ferrous sulfate 324 mg (65 mg iron) Tablet,Delayed Release (Dr/Ec) 325 mg PO DAILY 90 Days Qty: 91 0RF acetaminophen 325 mg Tablet 650 mg PO Q6H PRN (Reason: Pain, Mild (Pain Scale 1-3)) 30 Days Qty: 240 0RF celecoxib 200 mg Capsule 200 mg PO BID 30 Days Qty: 60 0RF docusate sodium 100 mg Capsule 100 mg PO BID 30 Days Qty: 60 0RF oxycodone 5 mg Tablet 5 mg PO Q4H PRN (Reason: Pain, Moderate(Pain Scale 4-6)) 7 Days Qty: 42 0RF Rx Instructions: Partial Fill upon patient request. Continued simvastatin 20 mg tablet 20 mg PO QPM hydrochlorothiazide 25 mg tablet 25 mg PO QAM Discontinued aspirin 325 mg tablet,delayed release (DR/EC) 325 mg PO BID 4 Days Qty: 8 0RF Discharge Orders: Discharge Order (Routine); Ordered 10/09/22 Ordered By: Lily Hernandez Diet: Advance to usual diet Activity on Discharge: Walk with crutches Activity Restrictions/Additional Instructions: NWB x 3 months NWB ROM as tolerated Brace locked in extension while ambulating Dressing changes as needed No tub bath or shower-Keep dressing clean, dry and intact Follow up with orthopedics 10/15/22 at 11:30am with Earlene Lynne PA-C Okay to begin VNA on 10/06/22
--- NOTE | 2022-10-09 10:17 | MHC.CM.PN ---
PATIENT IS DC HOME TODAY WITH NEW [facility] START OF CARE BY 10/14/22 PATIENT AWARE AND AGREEABLE TO PLAN. FRIEND TO PROVIDE TRANSPORT HOME. RN AWARE
[2022-10-09] MEDS: Enoxaparin Sodium 40 MG/0.4 ML SYRINGE SUBCUT (11:50)
[2022-10-09 15:44] VITALS: BP 149/80; PULSE 107; RESP 18; TEMP 36.3; O2SAT 97
--- NOTE | 2022-10-14 14:08 | W.PM.OPN ---
Operative Note Operative Note Date of Service: 10/07/22 Narrative: Date of Service: 10/07/22 Pre-op diagnosis: Right tibial plateau fracture Post-op diagnosis: same Procedure: ORIF right tibial plateau Implants: Josie medial and lateral plates Surgeon: Domenico Landeros MD Anesthesia: GETA and local Was an Machine Programmer used for this Procedure?: Yes Machine Programmer: Lily Hernandez Estimated blood loss (mL): 350 IV fluids (mL): 1,500 Pathology: none sent Condition: stable Disposition: PACU Procedure in detail: Patient was brought to the operating room and placed supine on the surgical table. He was prepped and draped in standard sterile fashion and a time out was called to identify proper site, proper procedure and IV antibiotics per weight were administered. I began by placed a femoral distractor. A distal medial Schanz pin was placed from medial to laterl throguht the tibial disphysis ~ 12 cm from the distal tibia. A lucy incision was made and a schnitt was used to spread down to bone and the schanz pin was placed bicortically. I repeated this process in the distal medial femur. Biplanar fluoro was used to confrim position. The knee was then distracted and radiogrpahs were obtained. There was a large medial fragment that was displaced but improved from prior to distraction. I made a medial incision over the joint line and the pes anserine bursa. Dissection was taken down to the pes and the fracture was identified and reduced. The distraction did most of the reduction but a larg tenaculaum was used to further reduce and a medial plateau plate was placed anteromedially under the pes tendons distally and medially on lateral radiographs. I placed three proximal locking screws , 2 of which were engaged in the medial fragment. Standard AO technique was used to fill in the screws distally. I then made a curvilinear incision over the ITB extending distally over the joint line and arching anteriorly over Gerdy's tubercle. Full thickness skin flaps were developed and the ITB was incised in line with the skin incision. The capsule was identified and then incised releasing hematogenous fluid. THe coronal ligaments were transected and the lateral meniscus was tagged and retracted proximally. There was split-depressed lateral plateau fracture. I used a freed and a tenaculum to reduce the intra-articualr fracture but there was no roled for Hydroset. I then selected a small lateral locking plate. Using standard AO technique my proximal locking screws and distal non-locking cortical screws were placed. Biplanar fluro was used to confirm fracture reduction and hardware alignment. Once I was satisfied with both final fluorscopic images were taken. The tourniquet was then let down and there was no brisk bleeding. The anterior compartment fascia was left open. A layered closure was performed with the meniscus repaired to the capsule laterally and then the ITB and then skin with absorbable subq and the bello. Sterile dressings were applies and a hinged knee brace as well. Patient was extubated and brought to the recovery room in stable condition. There were no known complications.
== END 2022-10-09 17:30 | disposition home health service (06) ==
LOC: HO.SSS 07:34 → HO.S3 18:12
PROVIDERS: Physician Assistant; PCP Internal Medicine Medical Oncology; Visit Provider Orthopaedic Surgery
PROC: (CPT 27536; principal; 2022-10-07 09:40)
DX: S82.141A Displaced bicondylar fracture of right tibia, initial encounter for closed fracture (principal); W05.1XXA Fall from non-moving nonmotorized scooter, initial encounter; Y93.I9 Activity, other involving external motion; Y92.9 Unspecified place or not applicable; Y99.8 Other external cause status; I10 Essential (primary) hypertension; E78.00 Pure hypercholesterolemia, unspecified; Z88.0 Allergy status to penicillin; Z79.82 Long term (current) use of aspirin; Z79.899 Other long term (current) drug therapy
CPT/HCPCS: 27536; 36415; 80048; 85025; 86850; 86900; 86901; 93971; 97116; 97162; 97165; 97530; C1713; J0131; J1100; J1170; J1650; J2250; J2405; J2795; J3010

== ENCOUNTER 2022-10-15 06:13 | Outpatient (REF) | payer OTHER, SELFPAY ==
--- NOTE | ~2022-10-15 | XR_ITS ---
EXAMINATION: XR KNEE, RIGHT CLINICAL INFORMATION: Fracture COMPARISON: Previous x-rays, most recent intraoperative fluoroscopy x-rays 523 TECHNIQUE: 2 views of the right knee. FINDINGS: There are medial and lateral plates and screws transfixing the proximal tibial fracture. The orthopedic hardware appears unchanged. Alignment appears unchanged. No other fracture. Joint effusion. Soft tissue swelling. Skin bello. XR/XR knee RT 2V IMPRESSION: ORIF of comminuted proximal tibial fracture.
== END 2022-10-15 06:14 | disposition home or self-care (01) ==
LOC: HO.HOSX 06:13
PROVIDERS: Visit Provider Physician Assistant
DX: S82.141D Displaced bicondylar fracture of right tibia, subsequent encounter for closed fracture with routine healing (principal)
CPT/HCPCS: 73560; 99212

== ENCOUNTER → 2022-10-22 13:36 | Outpatient (BNVA) | payer OTHER, SELFPAY | PROVIDERS: PCP Internal Medicine Medical Oncology; Visit Provider Physician Assistant | DX: S82.141D Displaced bicondylar fracture of right tibia, subsequent encounter for closed fracture with routine healing (principal) | CPT/HCPCS: 99212 ==

== ENCOUNTER → 2022-10-30 10:27 | Outpatient (BNVA) | payer OTHER, SELFPAY | PROVIDERS: PCP Internal Medicine Medical Oncology; Visit Provider Physician Assistant | DX: S82.141D Displaced bicondylar fracture of right tibia, subsequent encounter for closed fracture with routine healing (principal) | CPT/HCPCS: 99212 ==

== ENCOUNTER → 2022-11-04 11:25 | Outpatient (BNVA) | payer OTHER, SELFPAY | PROVIDERS: PCP Internal Medicine Medical Oncology; Visit Provider Physician Assistant | DX: S82.141D Displaced bicondylar fracture of right tibia, subsequent encounter for closed fracture with routine healing (principal) | CPT/HCPCS: 99212 ==

== ENCOUNTER → 2022-11-12 10:41 | Outpatient (BNVA) | payer OTHER, SELFPAY | PROVIDERS: PCP Internal Medicine Medical Oncology; Visit Provider Orthopaedic Surgery ==

== ENCOUNTER 2022-11-13 11:41 | Day surgery (SDC) | payer OTHER, SELFPAY ==
[2022-11-13 12:06] VITALS: BP 147/93; PULSE 88; RESP 16; TEMP 37.4; O2SAT 98; BMI 29.7
--- NOTE | 2022-11-13 12:27 | HO.ANESPROP2 ---
[facility] Active Problems Active Problems: All Active Problems (Updated 11/13/22 @ 11:59 by Katherine Ferrera) Tibial plateau fracture, right (Acute) HTN (hypertension) (Acute) Past Medical History Medical History Elevated cholesterol HTN (hypertension) Family History Family history of problems with anesthesia: No Surgical History Surgical History H/O colonoscopy History of Problems with Anesthesia: No Social History Social History Household Members: Spouse Housing: Apartment Are you a primary nurse care manager to a significant other at home: Yes Do you presently have visiting nurse or other home services: No Alcohol intake: never Patient Tobacco Use Status: Never used Tobacco Use of substances other than those prescribed or required for medical reasons: No Are you DNR?: No Advance Directives: No Advance Directives Information Provided: Yes service: No Current occupational status: employed 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 Allergies Allergy/AdvReac Type Severity Reaction Status Date / Time Fish Containing Products Allergy Severe ANAPHYLAXIS Verified 11/13/22 11:56 Penicillins [PENICILLINS] Allergy Severe ANAPHYLAXIS Verified 11/13/22 11:56 Home Medications Medication Instructions Recorded Confirmed Last Taken Type hydrochlorothiazide 25 mg tablet 25 mg PO QAM 09/04/20 11/13/22 11/12/22 History simvastatin 20 mg tablet 20 mg PO QPM 09/04/20 11/13/22 Unknown History Exam Exam Date and Time: November 13, 2022 1227 Height,Weight and Vital Signs: Height 6 ft 1 in Weight 102.058 kg Last Vital Signs Temp 99.3 F 11/13/22 12:06 Pulse 88 11/13/22 12:06 Resp 16 11/13/22 12:06 BP 147/93 H 11/13/22 12:06 Pulse Ox 98 11/13/22 12:06 O2 Del Method Room Air 11/13/22 12:06 Airway Mallampati Class: I TM Dist: >3cm Neck ROM: Full Assessment and Plan Assessment Anesthesia Assessment: Anesthesia Plan Discussed and Chart Reviewed Final Anesthetic Review Family History of Problems with Anesthesia: No History of Problems with Anesthesia: No NPO: Yes ASA Class: II Final Preanesthetic Review: No Changes in Pt Med Stat, Meds/Allgs Chart Reviewed, Consent Obtained/Reviewed and Anes Risks/Benef Reviewed Patient Risk: Low Procedure Risk: Low Anesthetic Plan Anesthetic Plan: GA Disposition: Standard PACU
[2022-11-13 14:05] VITALS: BP 148/80; PULSE 73; RESP 16; TEMP 36.4; O2SAT 100
[2022-11-13 14:10] VITALS: BP 149/87; PULSE 73; RESP 14; O2SAT 100
--- NOTE | 2022-11-13 14:12 | P.BOP_ITS ---
Brief Operative Note Date of Service: 11/13/22 Pre-op diagnosis: right tibia wound breakdown Post-op diagnosis: same Procedure: Irrigation and debridement right tibia Placement of wound vac Surgeon: Domenico Landeros MD Anesthesia: GETA and local Was an Assessment Clinician used for this Procedure?: No Estimated blood loss (mL): 25 IV fluids (mL): 500 Pathology: other Condition: stable Disposition: PACU
--- NOTE | 2022-11-13 14:12 | MHC.SHP ---
Pre-Procedural Eval Section A Date of Service: 11/13/22 The patient is an INPATIENT: No Changes since office visit: No Cold of Flu in the past 2 weeks, No New Medical Problems, No Changes in Medication and No Patient answered all questions The History & Physical has been completed within 30 days and I have reviewed it.: Yes Section B Chief Complaint: Displaced bicondylar fracture of right tibia, init Allergies: Allergies Allergy/AdvReac Type Severity Reaction Status Date / Time Fish Containing Products Allergy Severe ANAPHYLAXIS Verified 11/13/22 11:56 Penicillins [PENICILLINS] Allergy Severe ANAPHYLAXIS Verified 11/13/22 11:56 Plan I have reviewed the history and physical and performed a pertinent physical examination on my patient. No changes have occurred unless specified. Time Spent With Patient Time: Total time managing care of this patient today ____ minutes.
[2022-11-13 14:15] VITALS: BP 151/90; PULSE 82; RESP 16; O2SAT 98
[2022-11-13 14:20] VITALS: BP 152/91; PULSE 80; RESP 16; TEMP 36.6; O2SAT 98
[2022-11-13 14:35] VITALS: BP 146/86; PULSE 76; RESP 16; TEMP 36.6; O2SAT 97
--- NOTE | 2022-11-23 13:48 | W.PM.OPN ---
Operative Note Operative Note Date of Service: 11/13/22 Narrative: Date of Service: 11/13/22 Pre-op diagnosis: right tibia wound breakdown Post-op diagnosis: same Procedure: Irrigation and debridement right tibia Placement of wound vac Surgeon: Domenico Landeros MD Anesthesia: GETA and local Was an Core Winder used for this Procedure?: No Estimated blood loss (mL): 25 IV fluids (mL): 500 Pathology: other Condition: stable Disposition: PACU Indications: This is a 62-year-old gentleman who underwent tibial plateau ORIF with bike column nerve plating 5 weeks ago. He has been followed in our office for ongoing wound and soft tissue healing. His perioperative course was complicated by massive amounts of swelling. As the soft tissue matured it became evident that there was an area of full-thickness skin loss. He was taken to the operating room to undergo debridement. Procedure in detail: Patient was brought to the operating room placed supine on the operative table and prepped and draped in standard sterile fashion. A time-out was called to identify proper site procedure proper surgeon IV antibiotics per weight were held until after cultures were taken. I began by opening up the area it is along the proximal medial incision. This was notable for fibrous nonhealing tissue that was malodorous. There was full thickness skin loss as I debrided down. This was over the medial aspect of the proximal calf and there was a healthy bed of soft tissue without exposed hardware. Culture was taken although I suspect this may be contaminated because of the open nature of the wound. I debrided sharply and bluntly down to bleeding tissue and irrigated with 6 L of warm saline. A vacuum assisted device was placed in the wound. Overall the wound measured approximately 6 cm x 2-3 cm . Patient was awakened from anesthesia and brought to the recovery room in stable condition. There were no known complications.
== END 2022-11-13 15:30 | disposition home or self-care (01) ==
PROVIDERS: PCP Internal Medicine Medical Oncology; Visit Provider Orthopaedic Surgery
PROC: (CPT 11043; principal; 2022-11-13 13:00)
DX: T81.31XA Disruption of external operation (surgical) wound, not elsewhere classified, initial encounter (principal); L76.82 Other postprocedural complications of skin and subcutaneous tissue; L92.8 Other granulomatous disorders of the skin and subcutaneous tissue; Y84.8 Other medical procedures as the cause of abnormal reaction of the patient, or of later complication, without mention of misadventure at the time of the procedure; Y79.8 Miscellaneous orthopedic devices associated with adverse incidents, not elsewhere classified; Y92.9 Unspecified place or not applicable; I10 Essential (primary) hypertension; E78.00 Pure hypercholesterolemia, unspecified; Z88.0 Allergy status to penicillin; Z79.899 Other long term (current) drug therapy
CPT/HCPCS: 11043; 97605; 87070; 87147; 87205; J1100; J1885; J2250; J2405; J2795; J3010

== ENCOUNTER → 2022-11-13 11:41 | Outpatient (BNV) | payer OTHER, SELFPAY | PROVIDERS: PCP Internal Medicine Medical Oncology; Visit Provider Orthopaedic Surgery | DX: T81.40XA Infection following a procedure, unspecified, initial encounter (principal); S82.141A Displaced bicondylar fracture of right tibia, initial encounter for closed fracture | CPT/HCPCS: 11042; 97605 ==

== ENCOUNTER → 2022-11-16 09:10 | Outpatient (BNVA) | payer OTHER, SELFPAY | PROVIDERS: PCP Internal Medicine Medical Oncology; Visit Provider Physician Assistant ==

== ENCOUNTER 2022-11-19 10:23 | Outpatient (AMB) | payer OTHER, SELFPAY ==
[2022-11-19 10:27] VITALS: BMI 30.5
--- NOTE | 2022-11-19 10:27 | MHC.OFFVIS ---
Intake Vital Signs 11/19/22 10:27 Height 6 ft Weight 225 lb BMI 30.5 Intake Visit Reasons: PO Debridement R Tib, 11/13/22 , wound vac change Intake Note: Nigel is a 62 year old male who presents today for a post operative appointment s/p Right Tibial I&D 09/23/22 for a wound vac change. Allergies Fish Containing Products Allergy (Severe, Verified 11/19/22 10:30) ANAPHYLAXIS Penicillins [PENICILLINS] Allergy (Severe, Verified 11/19/22 10:30) ANAPHYLAXIS HPI PO Debridement R Tib, 11/13/22 , wound vac change HPI Details Nigel is a 62 year old man ~1 week S/P right tibia I&D & ~6 weeks S/P right tibial plateau ORIF. He presents for a wound check and wound vac change. He says he is doing well overall. He denies any fever or chills and continues to take his post-op Abx as instructed. He says he does have a tingling or burning sensation in his right leg. He denies any numbness and says he is able to move his toes without difficulty. 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 Review of Systems Const All systems reviewed & are unremarkable except as noted in HPI and below Physical Exam Vital Signs: BMI result Body Mass Index 30.5 Const General: no acute distress and alert Orientation/consciousness: patient oriented x3 Neuro General: patient oriented x3 Extrem Other: Right Knee: Beefy healthy tissue at base of large full-thickness skin loss No exposed hardware Psych Appearance: grossly normal Affect: normal affect Attitude: cooperative Assessment & Plan Assessment & Plan (1) Tibial plateau fracture, right: Code(s): S82.141A - Displaced bicondylar fracture of right tibia, initial encounter for closed fracture Plan: This is a 62 year old man S/P right tibial plateau ORIF, DOS: 10/07/22 & S/P tibia I&D with a wound vac placement. Cultures taken were present for Strep agalactiae (Grp B). He is doing well with the wound vac in place and continues to take his PO Abx. I discussed the possibility of an infected prosthesis which would require a revision surgery, however it is too soon to tell if the prosthesis is infected. He will continue to use his wound vac for the next ~2 weeks, and he will begin to work towards WBAT. I referred him to wound care, he will follow up in 1 week for a wound check. Plan Scribed for Domenico Landeros MD by Anup Felder, biomedical engineer, on 11/19/22 at 10:45 AM, EST. Coding Level of Care Code Global (10840) Diagnoses Tibial plateau fracture, right S82.141A
== END 2022-11-19 11:38 | disposition home or self-care (01) ==
PROVIDERS: PCP Internal Medicine Medical Oncology; Visit Provider Orthopaedic Surgery
DX: S82.141A Displaced bicondylar fracture of right tibia, initial encounter for closed fracture (principal)
CPT/HCPCS: 99024

== ENCOUNTER → 2022-11-19 10:23 | Outpatient (BNVA) | payer OTHER, SELFPAY | PROVIDERS: PCP Internal Medicine Medical Oncology; Visit Provider Orthopaedic Surgery | DX: S82.141D Displaced bicondylar fracture of right tibia, subsequent encounter for closed fracture with routine healing (principal) | CPT/HCPCS: 99212 ==

== ENCOUNTER 2022-11-23 09:30 | Outpatient (AMB) | payer OTHER, SELFPAY ==
[2022-11-23 10:12] VITALS: BMI 30.5
--- NOTE | 2022-11-23 10:12 | MHC.OFFVIS ---
Intake Vital Signs 11/23/22 10:12 Height 6 ft Weight 225 lb BMI 30.5 Intake Visit Reasons: PO Debridement R Tib, 11/13/22 , wound vac change Intake Note: Nigel is a 62 year old male who presents today for a post operative appointment s/p Right Tibial I&D 09/23/22 for a wound vac change. Allergies Fish Containing Products Allergy (Severe, Verified 11/19/22 10:30) ANAPHYLAXIS Penicillins [PENICILLINS] Allergy (Severe, Verified 11/19/22 10:30) ANAPHYLAXIS HPI PO Debridement R Tib, 11/13/22 , wound vac change HPI Details Nigel is a 62 year old man ~1 week S/P right tibia I&D & ~6 weeks S/P right tibial plateau ORIF. He presents for a wound check He says he is doing well overall. He denies any fever, chills, or numbness and says he is able to move his toes without difficulty. His culture taken during his I&D was positive for?Strep agalactiae (Grp B)? 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 Physical Exam Vital Signs: BMI result Body Mass Index 30.5 Const General: no acute distress and alert Orientation/consciousness: patient oriented x3 Neuro General: patient oriented x3 Extrem Other: Right Knee: Wound granulating nicely ~20 degree flexion contracture Psych Appearance: grossly normal Affect: normal affect Attitude: cooperative Assessment & Plan Assessment & Plan (1) Tibial plateau fracture, right: Code(s): S82.141A - Displaced bicondylar fracture of right tibia, initial encounter for closed fracture Plan: This is a 62 year old man S/P right tibial plateau ORIF, DOS: 10/07/22 & S/P tibia I&D with a wound vac placement. Cultures taken were present for Strep agalactiae (Grp B). He is doing well with the wound vac in place and continues to take his PO Abx. I discussed the possibility of an infected prosthesis which would require a revision surgery, however it is too soon to tell if the prosthesis is infected. He will continue with his wound vac use and remain non-WB. He will continue to work on knee extendion and follow up in 1 week for a wound check. Plan Scribed for Domenico Landeros MD by Anup Felder, biomedical manager, on 11/23/22 at 10:45 AM, EST. Coding Level of Care Code Global (31413) Diagnoses Tibial plateau fracture, right S82.141A
== END 2022-11-23 10:23 | disposition home or self-care (01) ==
LOC: HO.HOS 10:10
PROVIDERS: PCP Internal Medicine Medical Oncology; Visit Provider Orthopaedic Surgery
DX: S82.141A Displaced bicondylar fracture of right tibia, initial encounter for closed fracture (principal)
CPT/HCPCS: 99024

== ENCOUNTER → 2022-11-23 10:10 | Outpatient (BNVA) | payer OTHER, SELFPAY | PROVIDERS: PCP Internal Medicine Medical Oncology; Visit Provider Orthopaedic Surgery ==

== ENCOUNTER 2022-11-27 11:40 | Outpatient (AMB) | payer OTHER, SELFPAY ==
[2022-11-27 11:46] VITALS: BMI 30.5
--- NOTE | 2022-11-27 11:46 | A.OFFVIS_ITS ---
Intake Vital Signs 11/27/22 11:46 Height 6 ft Weight 225 lb BMI 30.5 Intake Visit Reasons: PO Debridement R Tib, 11/13/22 , wound vac change Intake Note: Nigel is a 62 year old male who presents today for a post operative appointment s/p Right Tibial I&D 09/23/22 wound vac change. Patient reports soreness in his knee. Allergies Fish Containing Products Allergy (Severe, Verified 11/27/22 11:50) ANAPHYLAXIS Penicillins [PENICILLINS] Allergy (Severe, Verified 11/27/22 11:50) ANAPHYLAXIS HPI PO Debridement R Tib, 11/13/22 , wound vac change HPI Details 62 yo male returns to the office today s/p ORIF Right tib plateau with Dr Landeros on 09/23/22. He underwent debridement of the medial incision due to skin breakdown on 11/13/22. He continues to do well, ambulates with walker, NWB. He states he has completed the first course of abx. 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 Review of Systems Const All systems reviewed & are unremarkable except as noted in HPI and below Physical Exam Vital Signs: BMI result Body Mass Index 30.5 Const General: no acute distress and alert Orientation/consciousness: patient oriented x3 Neuro General: patient oriented x3 Extrem Other: Right Knee: Beefy healthy tissue at base of large full-thickness skin loss No exposed hardware Psych Appearance: grossly normal Affect: normal affect Attitude: cooperative Assessment & Plan Assessment & Plan (1) Tibial plateau fracture, right: Code(s): S82.141A - Displaced bicondylar fracture of right tibia, initial encounter for closed fracture (2) Postoperative wound breakdown: Code(s): T81.31XA - Disruption of external operation (surgical) wound, not elsewhere classified, initial encounter Plan Wound vac was changed in the office today. The wound vac has good suction. The patient will continue to use this and we will see him back in one week for another wound vac change. He will also continue the antibiotics, new rx sent today. Anticipated progressing to WBAT at next appt if doing well. stat order placed for wound care as he has not heard from them for an appt . Orders: Referrals Wound Care Referral S82.141A - Displaced bicondylar fracture of right tibia, initial encounter for closed fracture, T81.31XA - Disruption of external operation (surgical) wound, not elsewhere classified, initial encounter Medications: Refilled doxycycline hyclate 100 mg PO BID 10 days 20 tabs 2RF Coding Level of Care Code Global (64930) Diagnoses Tibial plateau fracture, right S82.141A Postoperative wound breakdown T81.31XA
== END 2022-11-27 12:24 | disposition home or self-care (01) ==
PROVIDERS: PCP Internal Medicine Medical Oncology; Visit Provider Physician Assistant
DX: S82.141A Displaced bicondylar fracture of right tibia, initial encounter for closed fracture (principal); T81.31XA Disruption of external operation (surgical) wound, not elsewhere classified, initial encounter
CPT/HCPCS: 99024

== ENCOUNTER → 2022-11-27 11:40 | Outpatient (BNVA) | payer OTHER, SELFPAY | PROVIDERS: PCP Internal Medicine Medical Oncology; Visit Provider Physician Assistant ==

== ENCOUNTER 2022-12-04 10:15 | Outpatient (AMB) | payer OTHER, SELFPAY ==
--- NOTE | 2022-12-04 10:20 | A.OFFVIS_ITS ---
Intake Vital Signs 12/04/22 10:21 Height 6 ft Weight 225 lb BMI 30.5 Intake Visit Reasons: PO Debridement R Tib, 11/13/22 , wound vac change Intake Note: Nigel a 62 year old male who presents today for a post operative appointment s/p Right Tibial I&D 09/23/22, wound vac change.Patient reports that he is doing well. On Wednesday he accidentally tugged on the hose and it came loose, he secured it back with some tape. Allergies Fish Containing Products Allergy (Severe, Verified 12/04/22 10:20) ANAPHYLAXIS Penicillins [PENICILLINS] Allergy (Severe, Verified 12/04/22 10:20) ANAPHYLAXIS HPI PO Debridement R Tib, 11/13/22 , wound vac change HPI Details Nigel is a 62 year old man ~3 weeks S/P right tibia I&D & ~2 months S/P right tibial plateau ORIF. He presents for a wound check He says he is doing well overall. He denies any fever, chills, or numbness and says he is able to move his toes without difficulty. He continues to take oral Abx and has remained non-weight bearing. He says he accidentally caught and tugged his hose free on 12/02/22, he re- attached this with tape and says it has been working fine. He has his first wound care appointment on 12/08/22 His culture taken during his I&D was positive for?Strep agalactiae (Grp B). He says he has an allergy to Penicillin, he says causes him swelling. 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 Review of Systems Const All systems reviewed & are unremarkable except as noted in HPI and below Physical Exam Vital Signs: BMI result Body Mass Index 30.5 Const General: no acute distress and alert Orientation/consciousness: patient oriented x3 Neuro General: patient oriented x3 Extrem Other: Right Knee: Healthy granulation tissue at base of wound Wound measuring ~5*2cm in size Psych Appearance: grossly normal Affect: normal affect Attitude: cooperative Assessment & Plan Assessment & Plan (1) Tibial plateau fracture, right: Code(s): S82.141A - Displaced bicondylar fracture of right tibia, initial encounter for closed fracture Plan: This is a 62 year old man S/P right tibial plateau ORIF, DOS: 10/07/22 & S/P tibia I&D with a wound vac placement. Cultures taken were present for Strep agalactiae (Grp B). He is doing well with the wound vac in place and continues to take his PO Abx. I discussed the possibility of additional surgery. I consulted with Dr. Maradiaga concerning Abx use, as he is allergic to Penicillin. She recommends he remain on Doxycycline. He has his first appointment with wound care on 12/08/22. He will continue with his wound vac use and remain non-WB. He will continue to work on knee extension and follow up on 12/07/22 for a wound check. I ordered a new course of in-home PT. Plan Scribed for Domenico Landeros MD by Anup Felder, biomedical technician, on 12/04/22 at 10:50 AM, EST. Coding Level of Care Code Global (97560) Diagnoses Tibial plateau fracture, right S82.141A
[2022-12-04 10:21] VITALS: BMI 30.5
== END 2022-12-04 11:09 | disposition home or self-care (01) ==
PROVIDERS: PCP Internal Medicine Medical Oncology; Visit Provider Orthopaedic Surgery
DX: S82.141A Displaced bicondylar fracture of right tibia, initial encounter for closed fracture (principal)
CPT/HCPCS: 99024

== ENCOUNTER → 2022-12-04 10:15 | Outpatient (BNVA) | payer OTHER, SELFPAY | PROVIDERS: PCP Internal Medicine Medical Oncology; Visit Provider Orthopaedic Surgery ==

== ENCOUNTER 2022-12-07 10:02 | Outpatient (AMB) | payer OTHER, SELFPAY ==
--- NOTE | 2022-12-07 10:03 | MHC.OFFVIS ---
Intake Intake Visit Reasons: Postop-Debridement R Tib, 11/13/22 wound vac change Intake Note: Nigel is a 62 year old male who presnets today for a post operative follow up of his right tibia. Her states that he is doing well an he has upcoming appointment with wound care tomorrow 12/08/22. He reports that he finished his abx this morning. Allergies Fish Containing Products Allergy (Severe, Verified 12/07/22 10:05) ANAPHYLAXIS Penicillins [PENICILLINS] Allergy (Severe, Verified 12/07/22 10:05) ANAPHYLAXIS HPI Postop-Debridement R Tib, 11/13/22 wound vac change HPI Details Nigel is a 62 year old man ~3 weeks S/P right tibia I&D & ~2 months S/P right tibial plateau ORIF. He presents for a wound check He says he is doing well overall. He denies any fever, chills, or numbness and says he is able to move his toes without difficulty. He has just finished his oral Abx and hac continues to remain non-weight bearing. He has his first wound care appointment on 12/08/22 His culture taken during his I&D was positive for?Strep agalactiae (Grp B). He says he has an allergy to Penicillin, he says causes him swelling.? ? 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 Review of Systems Const All systems reviewed & are unremarkable except as noted in HPI and below Physical Exam Const General: no acute distress and alert Orientation/consciousness: patient oriented x3 Neuro General: patient oriented x3 Extrem Other: Right Knee: Healthy granulation tissue at base of wound Wound measuring ~5*2cm in size Psych Appearance: grossly normal Affect: normal affect Attitude: cooperative Assessment & Plan Assessment & Plan (1) Tibial plateau fracture, right: Code(s): S82.141A - Displaced bicondylar fracture of right tibia, initial encounter for closed fracture Plan: This is a 62 year old man S/P right tibial plateau ORIF, DOS: 10/07/22 & S/P tibia I&D with a wound vac placement. Cultures taken were present for Strep agalactiae (Grp B.He is doing well with the wound vac in place and has completed his PO Abx. I discussed the possibility of additional surgery. He has his first appointment with wound care on 12/08/22. He will continue with his wound vac use and remain non-WB. He will continue to work on knee extension and follow up in 1 week for a wound check. I extended his wound vac usage for another 1 week and ordered another course of Doxycycline. Plan Scribed for Domenico Landeros MD by Anup Felder, director of medical education, on 12/07/22 at 10:30 AM, EST. Medications: Changed From doxycycline hyclate 100 mg PO BID 10 days 20 tabs 2RF To doxycycline hyclate 100 mg PO BID 21 days 42 tabs 2RF Coding Level of Care Code Global (25784) Diagnoses Tibial plateau fracture, right S82.141A
== END 2022-12-07 11:29 | disposition home or self-care (01) ==
PROVIDERS: PCP Internal Medicine Medical Oncology; Visit Provider Orthopaedic Surgery
DX: S82.141A Displaced bicondylar fracture of right tibia, initial encounter for closed fracture (principal)
CPT/HCPCS: 99024

== ENCOUNTER → 2022-12-07 10:02 | Outpatient (BNVA) | payer OTHER, SELFPAY | PROVIDERS: PCP Internal Medicine Medical Oncology; Visit Provider Orthopaedic Surgery ==

== ENCOUNTER 2022-12-14 09:54 | Outpatient (REF) | payer OTHER, SELFPAY ==
--- NOTE | ~2022-12-14 | XR_ITS ---
EXAMINATION: XR KNEE, RIGHT CLINICAL INFORMATION: Pain COMPARISON: Right knee radiograph from 09/26/2022, CT abdomen right knee from 10/05/2022 TECHNIQUE: Two views of the right knee. FINDINGS: Status post plate and screw fixation of a comminuted fractures involving the proximal tibia. Orthopedic hardware is grossly intact. Fracture lines remain visible. Joint spaces and alignment are otherwise maintained. Decreased in joint effusion. Suggestion of wound VAC along the medial proximal tibial soft tissues. XR/XR knee RT 2V IMPRESSION: 1. Status post plate and screw fixation of a comminuted fractures involving the proximal tibia. Orthopedic hardware is grossly intact. 2. Decreased joint effusion. 3. Suggestion of wound VAC along the medial proximal tibial soft tissues.
== END 2022-12-14 09:55 | disposition home or self-care (01) ==
LOC: HO.HOSX 09:54
PROVIDERS: PCP Internal Medicine Medical Oncology; Visit Provider Physician Assistant
DX: S82.141D Displaced bicondylar fracture of right tibia, subsequent encounter for closed fracture with routine healing (principal); T81.31XD Disruption of external operation (surgical) wound, not elsewhere classified, subsequent encounter
CPT/HCPCS: 73560

== ENCOUNTER 2022-12-14 09:54 | Outpatient (AMB) | payer OTHER, SELFPAY ==
--- NOTE | 2022-12-14 09:59 | MHC.OFFVIS ---
Intake Intake Visit Reasons: OV-Debridement R Tib, 11/13/22 wound check Intake Note: Brijesh a 62 year old male who presents today for a post operative wound check of his right tibia debridement on 11/13/22.?Patient reports the wound clinic rescheduled his appointment for next week. He has concerns of numbness in morales area. He would like to know an estimated time when he will be able to return to work. Allergies Fish Containing Products Allergy (Severe, Verified 12/14/22 10:07) ANAPHYLAXIS Penicillins [PENICILLINS] Allergy (Severe, Verified 12/14/22 10:07) ANAPHYLAXIS HPI OV-Debridement R Tib, 11/13/22 wound check HPI Details 62-year-old male who returns to the office today for post-op wound check of right tibia debridement, 11/13/22. He continues to have numbness in his morales area. He rescheduled for the next week by the wound clinic. He would like to know the estimated time for him to return to his work. He is doing well otherwise and has no other concerns. 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 Review of Systems Const All systems reviewed & are unremarkable except as noted in HPI and below Physical Exam Const General: no acute distress and alert Orientation/consciousness: patient oriented x3 Neuro General: patient oriented x3 Extrem Other: Right Knee: Beefy healthy tissue at base of large full-thickness skin loss No exposed hardware Psych Appearance: grossly normal Affect: normal affect Attitude: cooperative Assessment & Plan Assessment & Plan (1) Tibial plateau fracture, right: Code(s): S82.141A - Displaced bicondylar fracture of right tibia, initial encounter for closed fracture (2) Postoperative wound breakdown: Code(s): T81.31XA - Disruption of external operation (surgical) wound, not elsewhere classified, initial encounter Plan Wound vac was changed in the office today. The wound vac has good suction. The patient will continue to use this and we will see him back in one week for another wound vac change. He will also continue the antibiotics. he does have an appt for wound care 12/16/22 Orders: Orders XR knee RT 2V Today M25.569 - Pain in unspecified knee Patient Instructions: Scribed for Earlene Lynne PA-C, by Tobias Ferrari medical microbiologist, on 12/14/2022 at 10:00 AM EST. I, Earlene Lynne PA-C, have personally reviewed and agree with the information entered by the scribe. Coding Level of Care Code Global (86184) Diagnoses Tibial plateau fracture, right S82.141A Postoperative wound breakdown T81.31XA
== END 2022-12-14 11:16 | disposition home or self-care (01) ==
PROVIDERS: PCP Internal Medicine Medical Oncology; Visit Provider Physician Assistant
DX: S82.141A Displaced bicondylar fracture of right tibia, initial encounter for closed fracture (principal); T81.31XA Disruption of external operation (surgical) wound, not elsewhere classified, initial encounter
CPT/HCPCS: 99024

== ENCOUNTER 2022-12-16 08:02 | Outpatient (RCR) | payer OTHER, SELFPAY | END 2023-03-02 10:13 | disposition home or self-care (01) | LOC: HO.WCC 08:02 | PROVIDERS: PCP Internal Medicine Medical Oncology; Visit Provider Surgery | DX: Z09 Encounter for follow-up examination after completed treatment for conditions other than malignant neoplasm (principal); I87.301 Chronic venous hypertension (idiopathic) without complications of right lower extremity; Z87.2 Personal history of diseases of the skin and subcutaneous tissue; Z79.899 Other long term (current) drug therapy | CPT/HCPCS: 11042; 11043; 11045; 11046; 15271; 97605; 99212; Q4101 ==

== ENCOUNTER 2023-04-12 10:28 | Outpatient (REF) | payer OTHER, SELFPAY ==
[2023-04-12 10:54] LABS: MANUAL DIFF FLAG NO
[2023-04-12 11:46] LABS: Eosinophils Absolute Auto 0.1 X10*3/uL (0.0-0.4); Eosinophils Percent Auto 3.1 % (0-4); Hematocrit 35.8 % (42.0-52.0); Hemoglobin 11.2 g/dl (14.0-18.0); Imm Gran Abs Auto 0.01 X10*3/uL (0.00-0.03); Imm Gran Pct Auto 0.2 % (0.0-0.4); Lymphocytes Absolute Auto 1.8 X10*3/uL (1.2-4.9); Lymphocytes Percent Auto 43.5 % (20-40); Mean Corpuscular HGB Conc 31.3 g/dl (31.0-36.0); Mean Corpuscular Hemoglobin 27.3 pg (27.0-33.0); Mean Corpuscular Volume 87.3 fL (80.0-98.0); Mean Platelet Volume 9.5 fL (9.4-12.4); Monocytes Absolute Auto 0.4 X10*3/uL (0.1-1.2); Monocytes Percent Auto 9.3 % (2-11); Neutrophils Absolute Auto 1.8 x10*3/uL (2.0-8.3); Neutrophils Percent Auto 42.9 % (45-73); Platelet Count 245 X10*3/uL (160-400); Red Cell Distribution Width 16.5 % (11.0-16.0); White Blood Count 4.2 X10*3/uL (4.8-10.8)
[2023-04-12 12:15] LABS: Alanine Aminotransferase 14 U/L (0-40); Albumin Level 3.7 g/dL (3.5-5.0); Alkaline Phosphatase 70 U/L (39-117); Anion Gap 9 (12-20); Aspartate Amino Transferase 17 U/L (5-37); Bilirubin Total 0.8 mg/dL (0.0-1.0); Blood Urea Nitrogen 13 mg/dL (9-16); Calcium 8.7 mg/dL (8.4-10.2); Carbon Dioxide 27 mmol/L (22-29); Chloride 113 mmol/L (96-108); Cholesterol 176 mg/dL (<200); Estimated Glomerular Filt Rate > 60; Glucose Fasting 91 mg/dL (60-99); HDL Cholesterol 47 mg/dL (>40); LDL Cholesterol Calculated 120 mg/dL (<100); Potassium 3.9 mmol/L (3.3-5.1); Sodium 145 mmol/L (135-145); Total Protein 6.8 g/dL (6.5-8.0); Triglycerides 45 mg/dL (<150)
== END 2023-04-12 10:29 | disposition home or self-care (01) ==
LOC: HO.LAB 10:28
PROVIDERS: PCP Internal Medicine Medical Oncology; Visit Provider Internal Medicine Medical Oncology
DX: E66.3 Overweight (principal); E78.2 Mixed hyperlipidemia
CPT/HCPCS: 36415; 80053; 80061; 85025

== ENCOUNTER 2024-07-26 09:10 | Outpatient (REF) | payer OTHER, SELFPAY ==
[2024-07-26 09:32] LABS: MANUAL DIFF FLAG NO
[2024-07-26 09:50] LABS: Basophils Percent Auto 0.9 % (0-2); Eosinophils Absolute Auto 0.1 X10*3/uL (0.0-0.4); Hematocrit 39.5 % (42.0-52.0); Hemoglobin 12.9 g/dl (14.0-18.0); Lymphocytes Absolute Auto 1.6 X10*3/uL (1.2-4.9); Mean Corpuscular HGB Conc 32.7 g/dl (31.0-36.0); Mean Corpuscular Hemoglobin 28.9 pg (27.0-33.0); Mean Corpuscular Volume 88.6 fL (80.0-98.0); Mean Platelet Volume 9.2 fL (9.4-12.4); Monocytes Absolute Auto 0.4 X10*3/uL (0.1-1.2); Neutrophils Absolute Auto 2.3 x10*3/uL (2.0-8.3); Neutrophils Percent Auto 52.1 % (45-73); Platelet Count 229 X10*3/uL (160-400); Red Blood Count 4.46 X10*6/uL (4.60-5.80); Red Cell Distribution Width 14.5 % (11.0-16.0); White Blood Count 4.4 X10*3/uL (4.8-10.8)
--- OUTSIDE RECORDS SUMMARY | 2024-07-26 09:50 | XMS_ITS | Patient Health Record ---
Author Organization [facility] Address [address] [place] [address] Care Team Providers Care Hand Splitter Name Role Phone Soren Winn MD Primary Care Provider UnavailSoren Oconnor Unavailable [phone] Allergies Allergen (clinical drug ingredient) Drug/Non Drug Allergy documented on EMR Reaction Allergy Type Onset Date Status Fish derivative (substance) Fish (uncoded) Unknown Allergy Active Penicillin (uncoded) Unknown Allergy Active Reason For Referral No Information Medications Medication SIG (Take, Route, Frequency, Duration) Notes Start Date End Date Status hydroCHLOROthiazide 25 MG Orally Active Simvastatin 20 MG Orally Ac tive Immunizations Vaccine Route Administration Date Status Comme nts Influenza Unknown 08/16/2020 Refused Social History Tobacco Use: Social History Observation Description Date Details (start date - stop date) Never Smoker NA - NA Tobacco Use/Smoking Question Answer Notes Patient is a nonsmoker Alcohol Screen Question Answer Notes Did you have a drink containing alcohol in the p ast year? No Points 0 Interpretation Negative Section Notes: Nonsmoker; no sig alcohol Problems Problem Type SNOMED Code ICD Code Onset Dates Problem Status W/U Status Risk Notes Problem 134506568 Encounter for screening for malignant neoplasm of colon (Z12.11) Active confirmed Problem 312566923477187 Preprocedural examination (Z01.818) Active confirmed Plan Of Treatment Pending Test Test Name Order Date Pathology 09/09/2020 Future Test Test Name Order Date COLONOSCOPY 08/16/2020 Insurance Providers Payer Name Payer Address Payer Phone Subscriber Number Group Number Insured Name Patient Relationship to Insured Coverage Start Date Coverage End Date [facility] [address] [address] [place], [place] [id number] ROSANNE BLACKWOOD Self - patient is the insured Medical (General) History Medical History History ICD Code Hyperlipidemia Hypertension Negative screening colonoscopy in 05/2010 Denies NM,DM,CVA,Lung disease,renal dise ase Surgical History Surgery Date(Month/Year)
--- OUTSIDE RECORDS SUMMARY | 2024-07-26 09:51 | XMS_ITS ---
Author Organization Soren Winn III, MD Address [address] [place] [address] Care Team Providers Care Attending Urologist Name Role Phone Soren Winn Primary Care Provider Allergies Allergen (clinical drug ingredient) Drug/Non Drug Allergy documented on EMR Reaction Allergy Type Onset Date Status Penicillin Unknown Drug Allergy Active fish oils Fish Oil Unknown Drug Allergy Active REASON FOR VISIT Hypertension, Hyperlipidemia, Chronic leukopenia, Obesity, Benign prostatic hypertrophy Medications Medication SIG (Take, Route, Frequency, Duration) Notes Start Date End Date Status Simvastatin 20 MG 1 tablet in the even ing Orally Once a day Active hydroCHLOROthiazide 25 MG 1 tablet in morning Orally Once a day Active Social History Tobacco Use: Social History Observation Description Date Details (start date - stop date) Never Smoker NA - NA Sex Assigned At : Social History Observation Description Sex Assigned At Male Tobacco Use/Smoking Question Answer Notes Patient is a nonsmoker Additional Findings: Tobacco Non-User Aggressive non-smoker Vital Signs Temperature 97.3 degrees Fahrenheit 10/25/19 24 Blood pressure systolic 140 mm Hg 10/25/19 24 Blood pressure diastolic 80 mm Hg 024 Heart Rate 91 /min 10/25/2023 Height 71 in 10/25/2023 Weight 249 lbs 10/25/2023 BMI 34.72 kg/m2 10/25/2023 Encounters Encounter Location Date Provider Diagnosis Soren Winn III, MD [address] [place] [address] [place] [address] 10/25/2023 Soren Hayesrne Essential hypertensi on I10 ; Mixed hyperlipidemia E78.2 ; Leukopenia, unspecified type D72.819 ; BPH (benign prostatic hyperplasia) N40.0 and Obesity (BMI 30.0-34.9) E66.9 Assessments Encounter Date Diagnosis (ICD Code) Assessment Notes Treat ment Notes Treatment Clinical Notes 10/25/2023 Essential hypertension (ICD-10 - I10) His blood pressure has colme down to 14/80, which is slightly elevated. He has gained 5 pounds and is obese. I strongly recommended weight loss, sodium restriction. A follow-up visit was arranged. If he needs more medication. This will be provided. 10/25/2023 Mixed hyperlipidemia (ICD-10 - E78.2) His fasting lipid profile shows his values to be under target range. No change in his medication was made. I strongly recommended aggressive weight loss. Physical activity and the healthy Mediterranean diet. 10/25/2023 Leukopenia, unspecified type (ICD-10 - D72.819) His white blood cell count is 4200. At this time. He has had no new infections. This value will be observed. 10/25/2023 BPH (benign prostati c hyperplasia) (ICD-10 - N40.0) He rises from sleep once a night to urinate. We have discussed lifestyle modification as a way to reduce nocturia. 10/25/2023 Obesity (BMI 30.0-34.9) (ICD-10 - E66.9) He has gained 5 pounds. We have discussed a weight loss strategy using regular physical activity on a diet restricted in fat calories and sodium. Plan Of Treatment Medication Medication Name Sig Start Date Stop Date Notes Simvastatin 20 MG 1 tablet in the even ing Orally Once a day hydroCHLOROthiazide 25 MG 1 tablet in th e morning Orally Once a day Next Appt Details Follow Up: 3 Months, Reason: OV Provider Name:Soren Winn, 08/02/2024 10:00:00 AM, [address] [place] [address] [place], [place], [id number], Progress Notes * MATEO YAO: 0 (63 yo M)Acc No.[id number]:10/25/2023 Progress Notes Patient:?ROSANNE YAO Provider:?Soren Winn MD :1960???Age:63 Y???Sex:Male [place] e:10/25/2023 Address: [address] [id number] Subjective: * Chief Complaints: * ???HypertensionHyperlipidemi aChronic leukopeniaObesityBenign prostatic hypertrophy * HPI: ???COVID-19 Screening:? He returns for management of his medical issues. Since his last visit he has been healthy and well. He has had no issues with his right knee. He is working full-time. He has a good appetite and sleeps well. His blood pressure was controlled today. No change in his regimen was needed. ?Questions?Have you experienced fever, chills, cough, sore throat, shortness of breath, difficulty breathing, muscle aches, loss of taste or smell??No ?Have you been exposed to the virus within the last 10 days??No ?Have you travelled internationally in the last 10 days??No ?Have you been exposed to COVID-19 in the past??No * ROS:?General/Constitutional:?pain?only normal aches and pains.?Chills?denies.?Fatigue?admits.?Fever?denies.?ENT:?Decreased hearing?denies.?Respiratory:?Cough?denies.?Cardiovascular:?Chest pain with exertion?denies.?Dyspnea on exertion?denies.?Shortness of breath?denies.?Gastrointestinal:?Constipation?occasional.?Decreased appetite?denies.?Diarrhea?denies.?Heartburn?denies.?Nausea?denies.?Rectal bleeding?denies.?Vomiting?denies.?Hematology:?bruising?denies.?petechiae?denies.?Swollen glands?none have been noted.?Genitourinary:?Frequent urination?once a night.?Musculoskeletal:?Muscle aches?denies.?Painful joints?Right knee.?Sciatica?denies.?Weakness?denies.?Skin:?Itching?denies.?Rash?denies.?Skin lesion(s)?denies.?Neurologic:?Difficulty speaking?denies.?Dizziness?denies.?Headache?denies.?Low back pain?denies.?Psychiatric:?Depressed mood?denies.? * Medical History:? * Surgical History:?dental ext ractions in his 20s colonoscopy, [facility], Dr. Soren Stevens, negative 05/2010Colonoscopy, [facility], Dr. Soren Stevens, one tubular adenoma 08/2020ORIF fracture, right tibial plateau, [facility] 10/2022 * Hospitalization/Major Diagno stic Procedure:?Denies Past Hospitalization * Family History:?Father: bayron parr 83 yrs, Hypertension, hyperlipidemia, glaucoma, dementia, lives in a group home, diagnosed with Hyperlipidemia, HTN.?Mother: alive 81 yrs, Hypertension, in a group home, memory deficits, diagnosed with HTN.?Paternal Grand Mother: , diagnosed with CVD.?Paternal aunt: , diagnosed with Cancer.?3 brother(s) , 2 sister(s) - healthy. .? A paternal grandmother had coronary artery disease and has . A maternal grandmother has with diabetes mellitus. A paternal uncle has cirrhosis of the liver and a paternal aunt of cancer. A maternal aunt has diabetes mellitus. He is not aware of any family history of mental illness or substance use disorder. * Social History:?Tobacco Use:?Tobacco Use/Smoking?Patient is a?nonsmoker ?Additional Findings: Tobacco Non-User?Aggressive non-smoker ???He lives and [place], [place]. He was born in [place], [place] He has been to Kelsie for 37 years. They have no children. He is a [employer]. 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 He enjoys his work. * Medications:?TakinghydroCHLO ROthiazide 25 MG Tablet 1 tablet in the morning Orally Once a daySimvastatin 20 MG Tablet 1 tablet in the evening Orally Once a dayMedication List reviewed and reconciled with the patientTaking hydroCHLOROthiazide 25 MG Tablet 1 tablet in the morning Orally Once a dayTaking Simvastatin 20 MG Tablet 1 tablet in the evening Orally Once a dayMedication List reviewed and reconciled with the patient * Allergies:?Penicillin: Aller gyFish Oil: Allergyno[Allergies Verified] Objective: * Vitals:?Ht: 71, Wt:249, BMI: 34.72, BP: 140/80, HR:91, Temp:97.3. * ???Past Orders: Lab:URINE DIP STICK * Order Date 08/02/2023 07/29/2022 SG 1.020 (Ref Range: 1.005 - 1.025) 1.010 (Ref Range: 1.005 - 1.025) pH 6.0 (Ref Range: 5.0 - 9.0) 5.0 (Ref Range: 5.0 - 9.0) SINTIA Negative (Ref Range: Negative -) neg (Ref Range: Negative -) NIT Negative (Ref Range: Negative -) neg (Ref Range: Negative -) PRO 15 (Ref Range: Negative - Trace) neg (Ref Range: Negative - Trace) GLU Negative (Ref Range: Negative -) neg (Ref Range: Negative -) KET Negative (Ref Range: Negative -) neg (Ref Range: Negative -) UBG 0.2 (Ref Range: 0.1 - 1.8) 0.1 (Ref Range: 0.1 - 1.8) KATIE Negative (Ref Range: 0.2 - 1.3) 0.2 (Ref Range: 0.2 - 1.3) BLD Negative (Ref Range: Negative -) neg (Ref Range: Negative -) Menstrating NR N/A * Examination: ???General Examination: ?GENERAL APPEARANCE:?pleasant, well nourished, well developed, in no acute distress, calm and relaxed , obese , man.?HEAD:?atraumatic, normocephalic.?EYES:?eomi, perrla, anicteric, conjugate.?EARS:?normal.?NOSE:?septum intact.?ORAL CAVITY:?normal, unremarkable.?NECK/THYROID:?no jugular venous distention, no carotid bruit, thyroid normal.?LYMPH NODES:?no enlarged lymph nodes,spleen normal.?SKIN:?no suspicious lesions, anicteric.?HEART:?no clicks, gallops, murmurs, or rubs, regular rhythm, S1, S2 normal, no s3, or vascular bruits.?LUNGS:?clear to auscultation .?BREASTS:??no masses palpable bilaterally.?ABDOMEN:?bowel sounds normal, no ascites, no organomegaly, no mass , centripital obesity.?RECTAL EXAM:?not examined.?MUSCULOSKELETAL:?extremities unremarkable, no clubbing, cyanosis or edema, Scar with decreased range of motion right knee.?PERIPHERAL PULSES:?normal.?NEUROLOGIC:?alert and oriented, cranial nerves 2-12 grossly intact, deep tendon reflexes 2+ symmetrical, motor strength normal upper and lower extremities, sensory exam intact.?PSYCH:?alert, oriented.? Assessment: * Assessment: 1.?Essential hypertension - I10 (Primary), His blood pressure has colme down to 14/80, which is slightly elevated. He has gained 5 pounds and is obese. I strongly recommended weight loss, sodium restriction. A follow-up visit was arranged. If he needs more medication. This will be provided.?2.?Mixed hyperlipidemia - E78.2, His fasting lipid profile shows his values to be under target range. No change in his medication was made. I strongly recommended aggressive weight loss. Physical activity and the healthy Mediterranean diet.?3.?Leukopenia, unspecified type - D72.819, His white blood cell count is 4200. At this time. He has had no new infections. This value will be observed.?4.?BPH (benign prostatic hyperplasia) - N40.0, He rises from sleep once a night to urinate. We have discussed lifestyle modification as a way to reduce nocturia.?5.?Obesity (BMI 30.0-34.9) - E66.9, He has gained 5 pounds. We have discussed a weight loss strategy using regular physical activity on a diet restricted in fat calories and sodium.? Plan: * Treatment: * Procedure Codes:? * Preventive Medicine:? ??Counseling:?Care goal follow-up plan:?Counseling for abnormal BMI given?Yes ?Above Normal BMI Follow-up?Dietary management education, guidance, and counseling, Dietary needs education, Exercise promotion: strength training, Exercise promotion: stretching, Feeding regime, Giving encouragement to exercise, Lifestyle education regarding diet, Nutrition / feeding management, Nutrition therapy, Prescribed activity/exercise education, Prescribed diet education, Prescribed dietary intake, Special diet education, Weight monitoring , Intervention, Order not done: Medical or Other reason not done * Follow Up:?3 Months (Reason: OV) * Images: * Sign off status: Completed true * Provider:?Soren Winn MD Date:?10/15 Generated for Leena rich/Jayde/Tangitting on:?07/26/2024 09:50 AM EDT History and Physical Notes * HPI (History of Present Illness) Category Sub-Category Detail Notes COVID-19 Screening Questions Have you had any new onset fever, chills, cough, congestion, sore throat, shortness of breath, muscle aches?: No Have you been exposed to the virus withi n the last 10 days?: No Have you travelled internationally in e last 10 days?: No Have you been exposed to COVID-19 in the past?: No Examination Category Sub-Category Detail Notes General Examination GENERAL APPEARANCE: pleasant , well nourished, well developed, in no acute distress, calm and relaxed , obese , man HEAD: atraumatic, normocep halic EYES: eomi, perrla, anicte shivam, conjugate EARS: normal NOSE: septum intact NECK/THYROID: no jugular venous di stention, no carotid bruit, thyroid normal HEART: no clicks, gallops, murmurs, or rubs, regular rhythm, S1, S2 normal, no s3, or vascular bruits LUNGS: clear to auscultatio n ABDOMEN: bowel sounds normal, no ascites, no organomegaly, no mass , centripital obesity NEUROLOGIC: alert and oriented, cranial nerves 2-12 grossly intact, deep tendon reflexes 2+ symmetrical, motor strength normal upper and lower extremities, sensory exam intact SKIN: no suspicious lesion s, anicteric PERIPHERAL PULSES: normal BREASTS: no masses palpable b ilaterally MUSCULOSKELETAL: extremities unremark able, no clubbing, cyanosis or edema, Scar with decreased range of motion right knee LYMPH NODES: no enlarged lymph no pinky,spleen normal RECTAL EXAM: not examined PSYCH: alert, oriented ORAL CAVITY: normal, unremarkable
--- OUTSIDE RECORDS SUMMARY | 2024-07-26 09:51 | XMS_ITS ---
Author Organization Soren Winn III, MD Address [address] [place] [address] Care Team Providers Care Pmp Certified Project Manager Name Role Phone Soren Winn Primary Care Provider Allergies Allergen (clinical drug ingredient) Drug/Non Drug Allergy documented on EMR Reaction Allergy Type Onset Date Status Penicillin Unknown Drug Allergy Active fish oils Fish Oil Unknown Drug Allergy Active REASON FOR VISIT Hypertension, Obesity, Hyperlipidemia, Benign prostatic hypertrophy, Leukopenia Medications Medication SIG (Take, Route, Frequency, Duration) Notes Start Date End Date Status Simvastatin 20 MG 1 tablet in the even ing Orally Once a day Active hydroCHLOROthiazide 25 MG 1 tablet in e morning Orally Once a day Active Social History Tobacco Use: Social History Observation Description Date Details (start date - stop date) Never Smoker NA - NA Sex Assigned At : Social History Observation Description Sex Assigned At Male Tobacco Use/Smoking Question Answer Notes Patient is a nonsmoker Additional Findings: Tobacco Non-User Aggressive non-smoker Vital Signs Temperature 97.2 degrees Fahrenheit 04/26/20 24 Blood pressure systolic 134 mm Hg 04/26/20 24 Blood pressure diastolic 76 mm Hg 024 Heart Rate 90 /min 04/26/2024 Height 71 in 04/26/2024 Weight 252 lbs 04/26/2024 BMI 35.14 kg/m2 04/26/2024 Encounters Encounter Location Date Provider Diagnosis Soren Winn III, MD [address] [place] [address] [place], [place] [address] 04/26/2024 Soren Winn Essential hypertensi on I10 ; Obesity (BMI 30.0-34.9) E66.9 ; Leukopenia, unspecified type D72.819 ; Mixed hyperlipidemia E78.2 and BPH (benign prostatic hyperplasia) N40.0 Assessments Encounter Date Diagnosis (ICD Code) Assessment Notes Treat ment Notes Treatment Clinical Notes 04/26/2024 Essential hypertension (ICD-10 - I10) He has been compliant with his medication. He is restricting his sodium intake. His blood pressure is at the upper limit of normal. He will continue to lose weight and consume a healthy low sodium weight reduction Mediterranean diet. 04/26/2024 Obesity (BMI 30.0-34.9) (ICD-10 - E66.9) His body mass index is 35. He has gained 6 pounds since his last visit. We have discussed a weight loss strategy using regular physical activity on a diet restricted in fat calories and sodium. 04/26/2024 Leukopenia, unspecified type (ICD-10 - D72.819) His white blood cell count is 4200. At this time. He has had no new infections. This value will be observed. 04/26/2024 Mixed hyperlipidemia (ICD-10 - E78.2) His fasting lipid profile shows his values to be under target range. No change in his medication was made. I strongly recommended aggressive weight loss. Physical activity and the healthy Mediterranean diet. 04/26/2024 BPH (benign prostati c hyperplasia) (ICD-10 - N40.0) He rises from sleep once a night to urinate. We have discussed lifestyle modification as a way to reduce nocturia. Plan Of Treatment Medication Medication Name Sig Start Date Stop Date Notes Simvastatin 20 MG 1 tablet in the ing Orally Once a day hydroCHLOROthiazide 25 MG 1 tablet in e morning Orally Once a day Pending Test Test Name Order Date PROFILE, FASTING (COMPREHENSIVE METABOLI C) 04/26/2024 PSA, TOTAL 04/26/2024 CBC WITH AUTO DIFF 04/26/2024 Lipid Panel 04/26/2024 Next Appt Details Follow Up: As Scheduled, Jul , Reason: OV, Annual visit Provider Name:Soren Winn, 08/02/2024 10:00:00 AM, [address] [place] [address] [place], [address], Progress Notes * ROSANNE YAODOB: 0 (63 yo M)Acc No.[id number]:04/26/2024 Progress Notes Patient:?ROSANNE YAO Provider:?Soren Winn MD :1960???Age:63 Y???Sex:Male Weston e:04/26/2024 [address] [id number] Subjective: * Chief Complaints: * ???HypertensionObesityHyperl ipidemiaBenign prostatic hypertrophyLeukopenia * HPI: ???COVID-19 Screening:?Questions?Have you had any new onset fever, chills, cough, congestion, sore throat, shortness of breath, muscle aches??No ?Have you been exposed to the virus within the last 10 days??No ?Have you travelled internationally in the last 10 days??No ?Have you been exposed to COVID-19 in the past??Yes ???:?The patient, a 63-year-old male, has been experiencing weight gain, which the doctor has advised him to control. The patient also reports urinating a couple of times at night, but not every night. The doctor suggests that if the patient avoids drinking water after 5:00 PM, he might be able to sleep through the night. The patient has no infections in his legs and his blood pressure is good. He has been taking his medication regularly. The patient's lungs are in good condition, with no problems reported during the examination. The patient's knees are also reported to be in good condition, and his eyesight and hearing are fine.He has had no serious infections since his last visit. * ROS:?General/Constitutional:?pain?only normal aches and pains.?Chills?denies.?Fatigue?admits.?Fever?denies.?ENT:?Decreased hearing?denies.?Respiratory:?Cough?denies.?Cardiovascular:?Chest pain with exertion?denies.?Dyspnea on exertion?denies.?Shortness of breath?denies.?Gastrointestinal:?Constipation?occasional.?Decreased appetite?denies.?Diarrhea?denies.?Heartburn?denies.?Nausea?denies.?Rectal bleeding?denies.?Vomiting?denies.?Hematology:?bruising?denies.?petechiae?denies.?Swollen glands?none have been noted.?Genitourinary:?Frequent urination?once a night.?Musculoskeletal:?Muscle aches?denies.?Painful joints?denies.?Sciatica?denies.?Weakness?denies.?Skin:?Itching?denies.?Rash?denies.?Skin lesion(s)?denies.?Neurologic:?Difficulty speaking?denies.?Dizziness?denies.?Headache?denies.?Low back pain?denies.?Psychiatric:?Depressed mood?denies.? * Medical History:? * Surgical History:?dental ext ractions in his 20s colonoscopy, [facility], Dr. Soren Stevens, negative 05/2010Colonoscopy, [facility], Dr. Soren Stevens, one tubular adenoma 08/2020ORIF fracture, right tibial plateau, [facility] 10/2022No history * Hospitalization/Major Diagno stic Procedure:?No history * Family History:?Father: bayron parr 83 yrs, Hypertension, hyperlipidemia, glaucoma, dementia, lives in a alf, diagnosed with HTN, Hyperlipidemia.?Mother: alive 81 yrs, Hypertension, in a alf, memory deficits, diagnosed with HTN.?Paternal Grand Mother: , diagnosed with CVD.?Paternal uncle: alive.?Paternal aunt: , diagnosed with Cancer.?Maternal aunt: alive.?3 brother(s) , 2 sister(s) - healthy. .? [...] Findings: Tobacco Non-User?Aggressive non-smoker ???He lives and [place], [place]. He was born in [place], [place] He has been to Kelsie for 37 years. They have no children. He is a Jain. 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 He enjoys his work. * Medications:?TakinghydroCHLO ROthiazide 25 MG Tablet 1 tablet in the morning Orally Once a day Simvastatin 20 MG Tablet 1 tablet in the evening Orally Once a day Medication List reviewed and reconciled with the patientTaking hydroCHLOROthiazide 25 MG Tablet 1 tablet in the morning Orally Once a day Taking Simvastatin 20 MG Tablet 1 tablet in the evening Orally Once a day Medication List reviewed and reconciled with the patient * Allergies:?Penicillin: Aller gyFish Oil: Allergyno[Allergies Verified] Objective: * Vitals:?Ht: 71, Wt: 252, BMI :35.14, BP: 134/76, HR: 90, Temp: 97.2, Wt-k.31. * Examination: ???General Examination: ?GENERAL APPEARANCE:?pleasant, well nourished, well developed, in no acute distress, calm and relaxed, obese, man.?HEAD:?atraumatic, normocephalic.?EYES:?eomi, perrla, anicteric, conjugate.?EARS:?normal.?NOSE:?septum intact.?ORAL CAVITY:?normal, unremarkable.?NECK/THYROID:?no jugular venous distention, no carotid bruit, thyroid normal.?LYMPH NODES:?no enlarged lymph nodes,spleen normal.?SKIN:?no suspicious lesions, anicteric.?HEART:?no clicks, gallops, murmurs, or rubs, regular rhythm, S1, S2 normal, no s3, or vascular bruits.?LUNGS:?clear to auscultation .?BREASTS:??no masses palpable bilaterally.?ABDOMEN:?bowel sounds normal, no ascites, no organomegaly, no mass, centripital obesity.?RECTAL EXAM:?not examined.?MUSCULOSKELETAL:?extremities unremarkable, no clubbing, cyanosis or edema, Normal range of motion of knees.?PERIPHERAL PULSES:?normal.?NEUROLOGIC:?alert and oriented, cranial nerves 2-12 grossly intact, deep tendon reflexes 2+ symmetrical, motor strength normal upper and lower extremities, sensory exam intact.?PSYCH:?alert, oriented.? : ???Lungs:No problem, Knees: Good, Eyesight: OK, Hearing: OK. ??? Assessment: * Assessment: 1.?Essential hypertension - I10 (Primary)???Notes :He has been compliant with his medication. He is restricting his sodium intake. His blood pressure is at the upper limit of normal. He will continue to lose weight and consume a healthy low sodium weight reduction Mediterranean diet.???2.?Obesity (BMI 30.0-34.9) - E66.9???Notes :His body mass index is 35. He has gained 6 pounds since his last visit.? We have discussed a weight loss strategy using regular physical activity on a diet restricted in fat calories and sodium.???3.?Leukopenia, unspecified type - D72.819???Notes :His white blood cell count is 4200. At this time. He has had no new infections. This value will be observed.???4.?Mixed hyperlipidemia - E78.2???Notes :His fasting lipid profile shows his values to be under target range. No change in his medication was made. I strongly recommended aggressive weight loss. Physical activity and the healthy Mediterranean diet.???5.?BPH (benign prostatic hyperplasia) - N40.0???Notes :He rises from sleep once a night to urinate. We have discussed lifestyle modification as a way to reduce nocturia.??? Plan: * Treatment: 2.?Obesity (BMI 30.0-34.9)?LAB: PROFILE, FASTING (COMPREHENSIVE METABOLIC) ?LAB: PSA, TOTAL ?LAB: CBC WITH AUTO DIFF ?LAB: Lipid Panel 3.?Mixed hyperlipidemia?LAB: PROFILE, FASTING (COMPREHENSIVE METABOLIC) ?LAB: PSA, TOTAL ?LAB: CBC WITH AUTO DIFF ?LAB: Lipid Panel 4.?BPH (benign prostatic hyp erplasia)?LAB: PROFILE, FASTING (COMPREHENSIVE METABOLIC) ?LAB: PSA, TOTAL ?LAB: CBC WITH AUTO DIFF ?LAB: Lipid Panel 5.?Others? Continue hydroCHLOROthiazide Tablet, 25 MG, 1 tablet in the morning, Orally, Once a day;?Continue Simvastatin Tablet, 20 MG, 1 tablet in the evening, Orally, Once a day.?? * Procedure Codes:? * Preventive Medicine:? ??Counseling:?Care [...] or Other reason not done * Follow Up:?As Scheduled, Mar ch (Reason: OV, Annual visit) * Images: * Sign off status: Completed true * Provider:?Soren Winn MD Date:?04/16 Generated for Printi ng/Faxing/eTransmitting on:?07/26/2024 09:50 AM EDT History and Physical Notes * HPI (History of Present Illness) Category Sub-Category Detail Notes COVID-19 Screening Questions Have you had any new onset fever, chills, cough, congestion, sore throat, shortness of breath, muscle aches?: No Have you been exposed to the virus withi n the last 10 days?: No Have you travelled internationally in [facility] last 10 days?: No Have you been exposed to COVID-19 in the past?: Yes Examination Category Sub-Category Detail Notes General Examination GENERAL APPEARANCE: pleasant , well nourished, well developed, in no acute distress, calm and relaxed, obese, man HEAD: atraumatic, normocep halic EYES: eomi, perrla, anicte shivam, conjugate EARS: normal NOSE: septum intact NECK/THYROID: no jugular venous di stention, no carotid bruit, thyroid normal HEART: no clicks, gallops, murmurs, or rubs, regular rhythm, S1, S2 normal, no s3, or vascular bruits LUNGS: clear to auscultatio n ABDOMEN: bowel sounds normal, no ascites, no organomegaly, no mass, centripital obesity NEUROLOGIC: alert and oriented, cranial nerves 2-12 grossly intact, deep tendon reflexes 2+ symmetrical, motor strength normal upper and lower extremities, sensory exam intact SKIN: no suspicious lesion s, anicteric PERIPHERAL PULSES: normal BREASTS: no masses palpable b ilaterally MUSCULOSKELETAL: extremities unremark able, no clubbing, cyanosis or edema, Normal range of motion of knees LYMPH NODES: no enlarged lymph no pinky,spleen normal RECTAL EXAM: not examined PSYCH: alert, oriented ORAL CAVITY: normal, unremarkable
--- OUTSIDE RECORDS SUMMARY | 2024-07-26 09:51 | XMS_ITS ---
Author Organization Soren Winn III, MD Address [address] [place] [address] Care Team Providers Care Client Retention Specialist Name Role Phone Soren Winn Primary Care Provider Allergies Allergen (clinical drug ingredient) Drug/Non Drug Allergy documented on EMR Reaction Allergy Type Onset Date Status Penicillin Unknown Drug Allergy Active fish oils Fish Oil Unknown Drug Allergy Active REASON FOR VISIT Hypertension, Hyperlipidemia, Chronic glucoprotein, Obesity, Benign prostatic hypertrophy Medications Medication SIG (Take, Route, Frequency, Duration) Notes Start Date End Date Status hydroCHLOROthiazide 25 MG 1 tablet in th e morning Orally Once a day Active Simvastatin 20 MG 1 tablet in the even ing Orally Once a day Active Social History Tobacco Use: Social History Observation Description Date Details (start date - stop date) Never Smoker NA - NA Sex Assigned At : Social History Observation Description Sex Assigned At Male Tobacco Use/Smoking Question Answer Notes Patient is a nonsmoker Additional Findings: Tobacco Non-User Aggressive non-smoker Vital Signs Temperature 97.3 degrees Fahrenheit 01/25/20 24 Blood pressure systolic 138 mm Hg 01/25/20 24 Blood pressure diastolic 86 mm Hg 024 Heart Rate 78 /min 01/25/2024 Height 71 in 01/25/2024 Weight 246 lbs 01/25/2024 BMI 34.31 kg/m2 01/25/2024 Encounters Encounter Location Date Provider Diagnosis Soren Winn III, MD [address] [place] [address] [place] [address] 01/25/2024 Soren Winn Essential hypertensi on I10 ; Mixed hyperlipidemia E78.2 ; Leukopenia, unspecified type D72.819 ; BPH (benign prostatic hyperplasia) N40.0 and Obesity (BMI 30.0-34.9) E66.9 Assessments Encounter Date Diagnosis (ICD Code) Assessment Notes Treat ment Notes Treatment Clinical Notes 01/25/2024 Essential hypertension (ICD-10 - I10) He has been compliant with his medication. He is restricting his sodium intake. His blood pressure is at the upper limit of normal. He will continue to lose weight and consume a healthy low sodium weight reduction Mediterranean diet. 01/25/2024 Mixed hyperlipidemia (ICD-10 - E78.2) His fasting lipid profile shows his values to be under target range. No change in his medication was made. I strongly recommended aggressive weight loss. Physical activity and the healthy Mediterranean diet. 01/25/2024 Leukopenia, unspecified type (ICD-10 - D72.819) His white blood cell count is 4200. At this time. He has had no new infections. This value will be observed. 01/25/2024 BPH (benign prostati c hyperplasia) (ICD-10 - N40.0) He rises from sleep once a night to urinate. We have discussed lifestyle modification as a way to reduce nocturia. 01/25/2024 Obesity (BMI 30.0-34.9) (ICD-10 - E66.9) His body mass index is 34.3 We have discussed a weight loss strategy using regular physical activity on a diet restricted in fat calories and sodium. Plan Of Treatment Medication Medication Name Sig Start Date Stop Date Notes hydroCHLOROthiazide 25 MG 1 tablet in th e morning Orally Once a day Simvastatin 20 MG 1 tablet in the even ing Orally Once a day Next Appt Details Follow Up: 3 Months, Reason: ov no tests Provider Name:Soren Winn, 08/02/2024 10:00:00 AM, [address] [place] [address] [place], [place], [address], Progress Notes * MATEO YAO: 0 (63 yo M)Acc No.[id number]:01/25/2024 Progress Notes Patient:?ROSANNE YAO Provider:?Soren Winn MD :1960???Age:63 Y???Sex:Male Weston e:01/25/2024 Address: [id number] Subjective: * Chief Complaints: * ???HypertensionHyperlipidemi aChronic glucoproteinObesityBenign prostatic hypertrophy * HPI: ???COVID-19 Screening:? He returns for medical management. He is not restricting fluid intake after dinner time and reports nocturia once a night. He has lost 3 pounds and his BMI is 34. His blood pressure is stable. He denies any chest pain or shortness of breath. He has had no asthma. He is trying to lose weight. ?Questions?Have you experienced fever, chills, cough, sore throat, shortness of breath, difficulty breathing, muscle aches, loss of taste or smell??No ?Have you been exposed to the virus within the last 10 days??No ?Have you travelled internationally in the last 10 days??No ?Have you been exposed to COVID-19 in the past??Yes * ROS:?General/Constitutional:?pain?only normal aches and pains.?Chills?denies.?Fatigue?admits.?Fever?denies.?ENT:?Decreased hearing?denies.?Respiratory:?Cough?denies.?Cardiovascular:?Chest pain with exertion?denies.?Dyspnea on exertion?denies.?Shortness of breath?denies.?Gastrointestinal:?Constipation?occasional.?Decreased appetite?denies.?Diarrhea?denies.?Heartburn?denies.?Nausea?denies.?Rectal bleeding?denies.?Vomiting?denies.?Hematology:?bruising?denies.?petechiae?denies.?Swollen glands?none have been noted.?Genitourinary:?Frequent urination?once a night.?Musculoskeletal:?Muscle aches?denies.?Painful joints?denies.?Sciatica?denies.?Weakness?denies.?Skin:?Itching?denies.?Rash?denies.?Skin lesion(s)?denies.?Neurologic:?Difficulty speaking?denies.?Dizziness?denies.?Headache?denies.?Low back pain?denies.?Psychiatric:?Depressed mood?denies.? * Medical History:? * Surgical History:?dental ext ractions in his 20s colonoscopy, [facility], Dr. Soren Stevens, negative 05/2010Colonoscopy, [facility], Dr. Soren Stevens, one tubular adenoma 08/2020ORIF fracture, right tibial plateau, [facility] 10/2022 * Hospitalization/Major Diagno stic Procedure:?Denies Past Hospitalization * Family History:?Father: bayron e 83 yrs, Hypertension, hyperlipidemia, glaucoma, dementia, lives in a intermediate, diagnosed with HTN, Hyperlipidemia.?Mother: alive 81 yrs, Hypertension, in a intermediate, memory deficits, diagnosed with HTN.?Paternal Grand Mother: [...] Findings: Tobacco Non-User?Aggressive non-smoker ???He lives and [place], [place]. He was born in [place], [place] He has been to Kelsie for 37 years. They have no children. He is a Yazidism. 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 * Medications:?TakinghydroCHLO ROthiazide [...] Allergyno[Allergies Verified] Objective: * Vitals:?Ht: 71, Wt: 246, BMI :34.31, BP: 138/86, HR: 78, Temp: 97.3, Wt-k.58. * Examination: ???General Examination: ?GENERAL APPEARANCE:?pleasant, well [...] EXAM:?not examined.?MUSCULOSKELETAL:?extremities unremarkable, no clubbing, cyanosis or edema.?PERIPHERAL PULSES:?normal.?NEUROLOGIC:?alert and oriented, cranial nerves 2-12 grossly intact, deep tendon reflexes 2+ symmetrical, motor strength normal upper and lower extremities, sensory exam intact.?PSYCH:?alert, oriented , cognitive function intact , cooperative with exam , thought process logical, goal directed.? Assessment: * Assessment: 1.?Essential hypertension - I10 (Primary), He has been compliant with his medication. He is restricting his sodium intake. His blood pressure is at the upper limit of normal. He will continue to lose weight and consume a healthy low sodium weight reduction Mediterranean diet.?2.?Mixed hyperlipidemia - E78.2, His fasting lipid profile [...] to reduce nocturia.?5.?Obesity (BMI 30.0-34.9) - E66.9, His body mass index is 34.3 We have discussed a weight loss strategy [...] not done * Follow Up:?3 Months (Reason: ov no tests) * Images: * Sign off status: Completed true * Provider:?Soren Winn MD Date:?01/15 Generated for Printi ng/Jayde/eTransmitting on:?07/26/2024 09:50 AM EDT History and Physical [...] extremities unremark able, no clubbing, cyanosis or edema LYMPH NODES: no enlarged lymph no pinky,spleen normal RECTAL EXAM: not examined PSYCH: alert, oriented , co gnitive function intact , cooperative with exam , thought process logical, goal directed ORAL CAVITY: normal, unremarkable
--- OUTSIDE RECORDS SUMMARY | 2024-07-26 09:51 | XMS_ITS | Patient Health Record ---
Author Organization Soren Winn III, MD Address [address] [place] [address] Care Team Providers Care Interventional Radiology Rn Name Role Phone Soren Winn Primary Care Provider [phone] Allergies Allergen (clinical drug ingredient) Drug/Non Drug Allergy documented on EMR Reaction Allergy Type Onset Date Status Penicillin Unknown Drug Allergy Active fish oils Fish Oil Unknown Drug Allergy Active Results Component Value Reference Range Notes URINE DIP STICK Reviewed date:08/02/2023 10:06:23 AM Interpretation: Performing Lab: Notes/Report: SG 1.020 1.005 - 1.025 pH 6.0 5.0 - 9.0 SINTIA Negative Negative - NIT Negative Negative - PRO 15 Negative - Trace GLU Negative Negative - KET Negative Negative - UBG 0.2 0.1 - 1.8 KATIE Negative 0.2 - 1.3 BLD Negative Negative - Reason For Referral Reason Colonoscopy Screenin g Diagnosis 1 Screen for colon can cer (Z12.11) Referral Organization Soren Winn III, MD Referring Provider First Name Soren Referring Provider Last Name Pa Referring Provider Speciality Internal M edicine Referred Provider Soren Stevens Referred Provider Specialty Gastroentero logy General Notes Diana Barrett 08/24/2023 11:17:09 AM > [facility] 03:21:33 PM >Last Colonoscopy on 09/09/2020. Due every 5 years. Referral Priority Routine Medications Medication SIG (Take, Route, Frequency, Duration) Notes Start Date End Date Status Simvastatin 20 MG 1 tablet in the even ing Orally Once a day Active hydroCHLOROthiazide 25 MG 1 tablet in th e morning Orally Once a day Active Immunizations Vaccine Route Administration Date Status Comme nts COVID PFIZER Unknown 01/13/2022 Administered COVID PFIZER Unknown 10/08/2020 Administered COVID PFIZER Unknown 09/17/2020 Administered COVID PFIZER Unknown 06/24/2021 Administered COVID Pfizer Bivalent Unknown 09/26/2022 Administered Social History Tobacco Use: Social History Observation Description Date Details (start date - stop date) Never Smoker NA - NA Sex Assigned At : Social History Observation Description Sex Assigned At Male Tobacco Use/Smoking Question Answer Notes Patient is a nonsmoker Additional Findings: Tobacco Non-User Aggressive non-smoker Alcohol Screen Question Answer Notes Did you have a drink containing alcohol in the p ast year? No Points 0 Interpretation Negative Problems Problem Type SNOMED Code ICD Code Onset Dates Problem Status W/U Status Risk Notes Problem 757708415121563 Obesity (BMI 30.0-34.9) (E66.9) Active confirmed His body mass index is 35. He has gained 6 pounds since his last visit. We have discussed a weight loss strategy using regular physical activity on a diet restricted in fat calories and sodium. Problem 420552500 Mixed hyperlipidemia (E78.2) Active confirmed His fasting lipid profile shows his values to be under target range. No change in his medication was made. I strongly recommended aggressive weight loss. Physical activity and the healthy Mediterranean diet. Problem Benign prostatic hyperplasia (346713036) BPH (benign prostatic hyperplasia) (N40.0) Active confirmed He rises from sleep once a night to urinate. We have discussed lifestyle modification as a way to reduce nocturia. Problem 86747377 Essential hypertension (I10) Active confirmed He has been compliant with his medication. He is restricting his sodium intake. His blood pressure is at the upper limit of normal. He will continue to lose weight and consume a healthy low sodium weight reduction Mediterranean diet. Problem 72023884 Penicillin allergy (Z88.0) Active confirmed Problem 77944468 Leukopenia, unspecified type (D72.819) Active confirmed His white blood cell count is 4200. At this time. He has had no new infections. This value will be observed. Problem 867091818 Mild intermittent childhood asthma without complication (J45.20) Active confirmed He continues to be free of adult asthma. No wheezing was heard today and he has had no respiratory issues. Problem 112224284 Adenomatous polyp (D36.9) Active confirmed He underwent a screening colonoscopy by Dr. Soren Stevens on September 09, 2020, his second, which was remarkable for a tubular adenoma. He should have a colonoscopy every 5 years. Vital Signs Heart Rate 90 /min 04/26/2024 Temperature 97.2 degrees Fahrenheit 04/26/2024 Blood pressure diastolic 76 mm Hg 04/26/2024 Height 71 in 04/26/2024 Blood pressure systolic 134 mm Hg 04/26/2024 Weight 252 lbs 04/26/2024 BMI 35.14 kg/m2 04/26/2024 Encounters Encounter Location Date Provider Diagnosis Soren Winn III, MD [address] [place] [address] [place] [address] 08/02/2023 Soren Winn Essential hypertensi on I10 ; Mixed hyperlipidemia E78.2 ; Mild intermittent childhood asthma without complication J45.20 ; Leukopenia, unspecified type D72.819 ; BPH (benign prostatic hyperplasia) N40.0 and Obesity (BMI 30.0-34.9) E66.9 Soren Winn III, MD [address] [place] [address] [place] [address] 10/25/2023 Soren Winn Essential hypertensi on I10 ; Mixed hyperlipidemia E78.2 ; Leukopenia, unspecified type D72.819 ; BPH (benign prostatic hyperplasia) N40.0 and Obesity (BMI 30.0-34.9) E66.9 Soren Winn III, MD [address] [place] [address] [place] [address] 01/25/2024 Soren Winn Essential hypertensi on I10 ; Mixed hyperlipidemia E78.2 ; Leukopenia, unspecified type D72.819 ; BPH (benign prostatic hyperplasia) N40.0 and Obesity (BMI 30.0-34.9) E66.9 Soren Winn III, MD [address] [place] [address] [place] [address] 04/26/2024 Soren Winn Essential hypertensi on I10 ; Obesity (BMI 30.0-34.9) E66.9 ; Leukopenia, unspecified type D72.819 ; Mixed hyperlipidemia E78.2 and BPH (benign prostatic hyperplasia) N40.0 Assessments Encounter Date Diagnosis (ICD Code) Assessment Notes Treat ment Notes Treatment Clinical Notes 08/02/2023 Mixed hyperlipidemia (ICD-10 - E78.2) His fasting lipid profile shows his values to be under target range. No change in his medication was made. I strongly recommended aggressive weight loss. Physical activity and the healthy Mediterranean diet. 08/02/2023 Essential hypertension (ICD-10 - I10) His blood pressure has colme down to 14/80, which is slightly elevated. He has gained 2 pounds and is overweight. I strongly recommended weight loss, sodium restriction. A follow-up visit was arranged. If he needs more medication. This will be provided. 10/25/2023 Mixed hyperlipidemia (ICD-10 - E78.2) His fasting lipid profile shows his values to be under target range. No change in his medication was made. I strongly recommended aggressive weight loss. Physical activity and the healthy Mediterranean diet. 10/25/2023 Essential hypertension (ICD-10 - I10) His blood pressure has colme down to 14/80, which is slightly elevated. He has gained 5 pounds and is obese. I strongly recommended weight loss, sodium restriction. A follow-up visit was arranged. If he needs more medication. This will be provided. 01/25/2024 Mixed hyperlipidemia (ICD-10 - E78.2) His fasting lipid profile shows his values to be under target range. No change in his medication was made. I strongly recommended aggressive weight loss. Physical activity and the healthy Mediterranean diet. 01/25/2024 Essential hypertension (ICD-10 - I10) He [...] restricted in fat calories and sodium. 04/26/2024 Essential hypertension (ICD-10 - I10) He has been compliant with his medication. He is restricting his sodium intake. His blood pressure is at the upper limit of normal. He will continue to lose weight and consume a healthy low sodium weight reduction Mediterranean diet. 08/02/2023 Mild intermittent childhood asthma without complication (ICD-10 - J45.20) He continues to be free of adult asthma. No wheezing was heard today and he has had no respiratory issues. 10/25/2023 Leukopenia, unspecified type (ICD-10 - D72.819) His white blood cell count is 4200. At this time. He has had no new infections. This value will be observed. 01/25/2024 Leukopenia, unspecified type (ICD-10 - D72.819) His white blood cell count is 4200. At this time. He has had no new infections. This value will be observed. 04/26/2024 Leukopenia, unspecified type (ICD-10 - D72.819) His white blood cell count is 4200. At this time. He has had no new infections. This value will be observed. 08/02/2023 Leukopenia, unspecified type (ICD-10 - D72.819) His white blood cell count is 4200. At this time. He has had no new infections. This value will be observed. 10/25/2023 BPH (benign prostati c hyperplasia) (ICD-10 - N40.0) He rises from sleep once a night to urinate. We have discussed lifestyle modification as a way to reduce nocturia. 01/25/2024 BPH (benign prostati c hyperplasia) (ICD-10 - N40.0) He rises from sleep once a night to urinate. We have discussed lifestyle modification as a way to reduce nocturia. 04/26/2024 Mixed hyperlipidemia (ICD-10 - E78.2) His fasting lipid profile shows his values to be under target range. No change in his medication was made. I strongly recommended aggressive weight loss. Physical activity and the healthy Mediterranean diet. 08/02/2023 BPH (benign prostati c hyperplasia) (ICD-10 - N40.0) He rises from sleep once a night to urinate. We have discussed lifestyle modification as a way to reduce nocturia. 10/25/2023 Obesity (BMI 30.0-34.9) (ICD-10 - E66.9) He has gained 5 pounds. We have discussed a weight loss strategy using regular physical activity on a diet restricted in fat calories and sodium. 01/25/2024 Obesity (BMI 30.0-34.9) (ICD-10 - E66.9) His body mass index is 34.3 We have discussed a weight loss strategy using regular physical activity on a diet restricted in fat calories and sodium. 04/26/2024 BPH (benign prostati c hyperplasia) (ICD-10 - N40.0) He rises from sleep once a night to urinate. We have discussed lifestyle modification as a way to reduce nocturia. 08/02/2023 Obesity (BMI 30.0-34.9) (ICD-10 - E66.9) We have discussed a weight loss strategy using regular physical activity on a diet restricted in fat calories and sodium. Plan Of Treatment Pending Test Test Name Order Date PROFILE, FASTING (COMPREHENSIVE METABOLI C) 01/29/2023 PROFILE, FASTING (COMPREHENSIVE METABOLI C) 03/02/2019 PROFILE, FASTING (COMPREHENSIVE METABOLI C) 07/17/2021 PROFILE, FASTING (COMPREHENSIVE METABOLI C) 11/06/2019 PROFILE, FASTING (COMPREHENSIVE METABOLI C) 04/26/2024 PROFILE, FASTING (COMPREHENSIVE METABOLI C) 11/13/2020 PROFILE, FASTING (COMPREHENSIVE METABOLI C) 07/29/2022 PROFILE, FASTING (COMPREHENSIVE METABOLI C) 07/07/2019 PROFILE, FASTING (COMPREHENSIVE METABOLI C) 03/07/2020 PROFILE, FASTING (COMPREHENSIVE METABOLI C) 03/25/2022 PROFILE, RANDOM (COMPREHENSIVE METABOLIC ) 10/02/2022 LIPID PANEL 03/07/2020 LIPID PANEL 03/25/2022 LIPID PANEL 01/29/2023 LIPID PANEL 03/02/2019 LIPID PANEL 07/17/2021 LIPID PANEL 11/06/2019 LIPID PANEL 07/29/2022 LIPID PANEL 07/07/2019 PSA, TOTAL 07/29/2022 PSA, TOTAL 03/07/2020 PSA, TOTAL 07/17/2021 PSA, TOTAL 04/26/2024 PSA, TOTAL SCREEN 03/25/2022 CBC w DIFF 07/07/2019 CBC w DIFF 07/29/2022 CBC w DIFF 01/29/2023 CBC w DIFF 03/07/2020 CBC w DIFF 03/25/2022 CBC w DIFF 03/02/2019 CBC w DIFF 10/02/2022 CBC w DIFF 11/06/2019 CBC w DIFF 07/17/2021 CBC w DIFF 11/13/2020 SCREENING COLONOSCOPY 06/13/2010 CBC WITH AUTO DIFF 04/26/2024 Lipid Panel 11/13/2020 Lipid Panel 04/26/2024 ECG 12 lead EKG 10/02/2022 Next Appt Details Provider Name:Soren Winn, 08/02/2024 10:00:00 AM, [address] [place] [address] , [place] Le[place], [place], [address], Insurance Providers Payer Name Payer Address Payer Phone Subscriber Number Group Number Insured Name Patient Relationship to Insured Coverage Start Date Coverage End Date [employer] [address] [address] [place] [address] [id number] ROSANNE YAO Self - patient is the insured MEDICAID [address] [place], [place] [id number] ROSANNE YAO Self - patient is the insured Medical (General) History Medical History History ICD Code essential hypertension mixed hyperlipidemia childhood asthma now an active overweight BMI 29 penicillin allergy 2002 echocardiogram, mild mitral and tri cuspid regurgitation [facility] tubular adenoma September 09, 2020 Fracture right tibial plateau, October 03, 023 Surgical History Surgery Date(Month/Year) dental extractions in his 20s colonoscopy, [facility], Dr. Soren Stevens, negative 05/2010 Colonoscopy, [facility], Dr. Soren Stevens, one tubular adenoma 08/2020 ORIF fracture, right tibial plateau, [facility] 10/2022 No history Hospitalization History Reason Date(Month/Year) No history
[2024-07-26 10:44] LABS: Prostate Specific Antigen 1.07 ng/mL (<0.05-4.0)
[2024-07-26 10:54] LABS: Alanine Aminotransferase 19 U/L (0-40); Albumin Level 3.9 g/dL (3.5-5.0); Alkaline Phosphatase 82 U/L (39-117); Anion Gap 11 (12-20); Aspartate Amino Transferase 21 U/L (5-37); Bilirubin Total 0.8 mg/dL (0.0-1.0); Blood Urea Nitrogen 16 mg/dL (9-16); Calcium 9.1 mg/dL (8.4-10.2); Carbon Dioxide 27 mmol/L (22-29); Chloride 111 mmol/L (96-108); Cholesterol 189 mg/dL (<200); Estimated Glomerular Filt Rate > 60; Glucose Fasting 98 mg/dL (60-99); HDL Cholesterol 50 mg/dL (>40); LDL Cholesterol Calculated 129 mg/dL (<100); Potassium 3.6 mmol/L (3.3-5.1); Sodium 145 mmol/L (135-145); Total Protein 7.5 g/dL (6.5-8.0); Triglycerides 51 mg/dL (<150)
== END 2024-07-26 09:11 | disposition home or self-care (01) ==
LOC: HO.LAB 09:10
PROVIDERS: PCP Internal Medicine Medical Oncology; Visit Provider Internal Medicine Medical Oncology
DX: I10 Essential (primary) hypertension (principal); E66.9 Obesity, unspecified; E78.2 Mixed hyperlipidemia; N40.0 Benign prostatic hyperplasia without lower urinary tract symptoms
CPT/HCPCS: 36415; 80053; 80061; 84153; 85025

== ENCOUNTER 2025-04-30 09:08 | Outpatient (REF) | payer MEDICARE, SELFPAY ==
[2025-04-30 09:30] LABS: MANUAL DIFF FLAG NO
[2025-04-30 10:18] LABS: Hematocrit 40.8 % (42.0-52.0); Hemoglobin 12.8 g/dl (14.0-18.0); Imm Gran Abs Auto 0.00 X10*3/uL (0.00-0.03); Imm Gran Pct Auto 0.0 % (0.0-0.4); Lymphocytes Absolute Auto 2.0 X10*3/uL (1.2-4.9); Mean Corpuscular HGB Conc 31.4 g/dl (31.0-36.0); Mean Corpuscular Hemoglobin 28.0 pg (27.0-33.0); Mean Corpuscular Volume 89.3 fL (80.0-98.0); NRBC Abs Auto 0.000 X10*3/uL (0.0-0.012); NRBC Pct Auto 0.0 /100WBC (0.0-0.2); Platelet Count 257 X10*3/uL (160-400); Red Blood Count 4.57 X10*6/uL (4.60-5.80); White Blood Count 4.2 X10*3/uL (4.8-10.8)
[2025-04-30 10:44] LABS: Alanine Aminotransferase 17 U/L (0-40); Albumin Level 4.1 g/dL (3.5-5.0); Alkaline Phosphatase 75 U/L (39-117); Anion Gap 11 (12-20); Aspartate Amino Transferase 21 U/L (5-37); Blood Urea Nitrogen 21 mg/dL (9-16); Calcium 9.0 mg/dL (8.4-10.2); Carbon Dioxide 29 mmol/L (22-29); Chloride 107 mmol/L (96-108); Cholesterol 193 mg/dL (<200); Estimated Glomerular Filt Rate 57; HDL Cholesterol 47 mg/dL (>40); Potassium 3.8 mmol/L (3.3-5.1); Sodium 143 mmol/L (135-145); Total Protein 7.0 g/dL (6.5-8.0); Triglycerides 66 mg/dL (<150)
[2025-04-30 11:04] LABS: Prostate Specific Antigen 1.11 ng/mL (<0.05-4.0)
== END 2025-04-30 09:09 | disposition home or self-care (01) ==
LOC: HO.LAB 09:08
PROVIDERS: PCP Internal Medicine Medical Oncology; Visit Provider Internal Medicine Medical Oncology
DX: I10 Essential (primary) hypertension (principal); E78.2 Mixed hyperlipidemia; D72.819 Decreased white blood cell count, unspecified; E66.9 Obesity, unspecified; N40.0 Benign prostatic hyperplasia without lower urinary tract symptoms; Z12.5 Encounter for screening for malignant neoplasm of prostate
CPT/HCPCS: 36415; 80053; 80061; 84153; 85025